=== PATIENT | male | born 1975 | race Caucasian/White ===

== ENCOUNTER 2017-03-30 08:39 | Emergency (ER) | payer OTHER ==
[~2017-03-30] VITALS: Ht 185.4 cm; Wt 191.4 kg
[~2017-03-30 08:39] MED LIST: ABILIFY10 MG PO; ADDERALL 30 MG30 MG PO; ADVIL200 M1 PO; CIPRO HC OTIC S10 ML AD; DEXTROAMP-AMPHE20 MG PO; DEXTROAMP-AMPHE30 MG PO; DILAUDID4 MG PO; HYDROCHLOROTHIA25 MG PO; LATUDA60 MG PO; LISINOPRIL10 MG PO; LOMOTIL TABLET1 EACH PO; MULTI VITAMIN1 EACH PO; ONDANSETRON ODT8 MG PO; OXYCONTIN20 MG PO; SEROQUEL100 MG PO; SEROQUEL200 MG PO; TENEX1 MG PO; TENEX2 MG PO; TRAZODONE HCL100 MG PO; VICODIN 5-3001 EACH PO; XARELTO10 MG PO
[2017-03-30] MEDS ORDERED: PROZAC20 MG PO (08:59)
[2017-03-30] MEDS ORDERED: NORVASC5 MG PO (09:00)
--- NOTE | 2017-03-30 12:07 | EKG ---
[facility] [address] [place], [place] [address] Signed Normal sinus rhythm Normal ECG When compared with ECG of 24-APR-2016 13:24, No significant change was found Confirmed by KRAIG GRACE MD ([id number]) on 03/30/2017 12:07:14 PM Electronically Signed By: KRAIG GRACE MD 03/30/17 1207 PATIENT NAME: HANY DARINEL GARCIA Electrocardiogram DATE OF : 79 PHYSICIAN: KRAIG GRACE MD REPORT #: [id number] REPORT IS CONFIDENTIAL AND NOT TO BE RELEASED WITHOUT AUTHORIZATION
== END 2017-03-30 09:38 | disposition home or self-care (01) ==
LOC: ED 08:39
DX: M25.512 Pain in left shoulder (principal); I10 Essential (primary) hypertension; F32.9 Major depressive disorder, single episode, unspecified; Z87.891 Personal history of nicotine dependence; Z98.890 Other specified postprocedural states; Z96.652 Presence of left artificial knee joint; Z79.899 Other long term (current) drug therapy
CPT/HCPCS: 71020; 93005; 93010; 99284

== ENCOUNTER 2017-09-09 06:56 | Emergency (ER) | payer OTHER ==
[~2017-09-09] VITALS: Ht 185.4 cm; Wt 191.4 kg
[~2017-09-09 06:56] MED LIST changes: +NORVASC5 MG PO; +PROZAC20 MG PO
[2017-09-09] MEDS ORDERED: LISINOPRIL-HCT1 EACH PO (07:10)
== END 2017-09-09 08:05 | disposition home or self-care (01) ==
LOC: ED 06:56
DX: R21 Rash and other nonspecific skin eruption (principal)

== ENCOUNTER 2019-09-09 10:06 | Emergency (ER) | payer OTHER ==
[~2019-09-09] VITALS: Ht 185.4 cm; Wt 217.7 kg
--- OUTSIDE RECORDS SUMMARY | ~2019-09-09 | XMS | Clinical Summary ---
Demographics + + + | Address | [address] | | | [place] [address] | + + + | Home Phone | | + + + | Preferred Language | Unknown | + + + | Marital Status | Single | + + + | Quaker Affiliation | Unknown | + + + | Race | Unknown | + + + | Ethnic Group | Unknown | + + + Author + + + | Author | [facility] | | | and [place] | + + + | Organization | [facility] | | | and [place] | + + + | Address | Unknown | + + + | Phone | Unavailable | + + + Support + + + + + | Name | Relationship | Address | Phone | + + + + + | Message Detailed | ECON | [address] | | | | | [place] | | | | | [address] | | + + + + + Care Team Providers + +------+ + | Care Purse Seiner Name | Role | Phone | + +------+ + | Kip Damon MD | PCP | | + +------+ + Allergies Not on File Medications Not on file Active Problems Not on file Immunizations + + + + | Name | Administration Dates | Next Due | + + + + | PNEUMOCOCCAL | 01/29/2015 | | | POLYSACCHARIDE | | | | 23-VALENT (PPSV23) | | | + + + + Social History + +-------+ +--------+------+ | Tobacco Use | Types | Packs/Day | Years | Date | | | | | Used | | + +-------+ +--------+------+ | Former Smoker | | | | | + +-------+ +--------+------+ + + + | Sex Assigned at | Date Recorded | | | | + + + | Not on file | | + + + + + + + | Job Start Date | Occupation | Industry | + + + + | Not on file | Not on file | Not on file | + + + + + + + + | Travel History | Travel Start | Travel End | + + + + + + | No recent travel history available. | + + Last Filed Vital Signs + + + + + | Vital Sign | Reading | Time Taken | Comments | + + + + + | Blood Pressure | 123/76 | 05/24/2015 10:42 AM | | | | | PST | | + + + + + | Pulse | 86 | 05/24/2015 10:42 AM | | | | | PST | | + + + + + | Temperature | 36.9 C (98.5 F) | 05/24/2015 10:42 AM | | | | | PST | | + + + + + | Respiratory Rate | - | - | | + + + + + | Oxygen Saturation | - | - | | + + + + + | Inhaled Oxygen | - | - | | | Concentration | | | | + + + + + | Weight | 177.4 kg (391 lb) | 05/24/2015 10:42 AM | | | | | PST | | + + + + + | Height | - | - | | + + + + + | Body Mass Index | - | - | | + + + + + Plan of Treatment + + + + + | Health Maintenance | Due Date | Last Done | Comments | + + + + + | Vaccine: | | | | | Dtap/Tdap/Td (1 - | 9 | | | | Tdap) | | | | + + + + + | Vaccine: Influenza | | 01/29/2015 | | | (Season Ended) | 0 | | | + + + + + Results Not on filefrom Last 3 Months"
--- OUTSIDE RECORDS SUMMARY | ~2019-09-09 | XMS | Encounter Summary ---
Demographics + + + | Address | [address] | | | [place] [address] | + + + | Home Phone | | + + + | Preferred Language | Unknown | + + + | Marital Status | Single | + + + | Caodaism Affiliation | Unknown | + + + | Race | Unknown | + + + | Ethnic Group | Unknown | + + + Author + + + | Author | [facility] | | | and [place] | + + + | Organization | [facility] | | | and [place] [...] [place] | | | | | [address] | | + + + + + Care Team Providers + +------+ + | Care Director Of Corporate Communications Name | Role | Phone | + +------+ + | Kip Damon MD | PCP | | + +------+ + Encounter Details +--------+ + + + + | Date | Type | Department | Care Team | Description | +--------+ + + + + | 02/19/ | Orders Only | [facility] | Conversion | | | 2014 | | NEPHROLOGY [place] | Transaction, | | | | | [address] | Provider Unknown | | | | | [address] [place] | | | | | | [phone] | (Fax) | | | | | [phone] | | | +--------+ + + + + Social History + +-------+ +--------+------+ | Tobacco Use | Types | Packs/Day | Years | Date | | | | | Used | | + +-------+ +--------+------+ | Never Assessed | | | | | + +-------+ [...] recent travel history available. | + + documented as of this encounter Plan of Treatment Not on filedocumented as of this encounter Procedures + +--------+ + + + | Procedure Name | Priori | Date/Time | Associated Diagnosis | Comments | | | ty | | | | + +--------+ + + + | COMPREHENSIVE | Routin | 02/19/2015 | | Results for this | | METABOLIC PANEL | e | 12:00 AM | | procedure are in the | | | | PDT | | results section. | + +--------+ + + + documented in this encounter Results Comprehensive Metabolic Panel (02/19/2015 12:00 AM PDT) + +---------+ + + + | Component | Value | Ref Range | Performed | Pathologist | | | | | At | Signature | + +---------+ + + + | Glucose, | 109 (A) | 70 - 100 mg/dL | EXTERNAL | | | Fasting | | | LAB | | + +---------+ + + + | BUN | 11 | 6 - 23 mg/dL | EXTERNAL | | | | | | LAB | | + +---------+ + + + | Creatinine | 0.97 | 0.50 - 1.35 | EXTERNAL | | | | | mg/dL | LAB | | + +---------+ + + + | BUN/Creatin | 11.3 | 6.0 - 28.6 | EXTERNAL | | | ine Ratio | | | LAB | | + +---------+ + + + | Calcium | 9.7 | 8.4 - 10.2 | EXTERNAL | | | | | mg/dL | LAB | | + +---------+ + + + | Protein, | 6.8 | 6.0 - 8.0 g/dL | EXTERNAL | | | Total | | | LAB | | + +---------+ + + + | Albumin | 4.2 | 3.5 - 5.0 | EXTERNAL | | | | | | LAB | | + +---------+ + + + | Globulin | 2.6 | 1.8 - 3.5 | EXTERNAL | | | | | | LAB | | + +---------+ + + + | A/G Ratio | 1.6 | 1.1 - 2.4 | EXTERNAL | | | | | | LAB | | + +---------+ + + + | Bilirubin | 0.7 | 0.0 - 1.2 mg/dL | EXTERNAL | | | Total | | | LAB | | + +---------+ + + + | ALP, | 57 | 30 - 128 | EXTERNAL | | | External | | | LAB | | + +---------+ + + + | ALT | 43 | 7 - 52 U/L | EXTERNAL | | | | | | LAB | | + +---------+ + + + | AST | 24 | 13 - 39 U/L | EXTERNAL | | | | | | LAB | | + +---------+ + + + | Na | 137 | 132 - 143 | EXTERNAL | | | | | mmol/L | LAB | | + +---------+ + + + | K | 4.5 | 3.6 - 5.1 | EXTERNAL | | | | | mmol/L | LAB | | + +---------+ + + + | Cl | 104 | 95 - 112 mmol/L | EXTERNAL | | | | | | LAB | | + +---------+ + + + | CO2 | 22 | 19 - 31 mmol/L | EXTERNAL | | | | | | LAB | | + +---------+ + + + | Anion Gap | 15.5 | 7 - 21 mmol/L | EXTERNAL | | | | | | LAB | | + +---------+ + + + | Estimated | 87 | 60 - 100 mg/dL | EXTERNAL | | | GFR | | | LAB | | + +---------+ + + + + + | Specimen | + + | Blood specimen | | (specimen) | + + + +---------+ + + | Performing | Address | City/State/Zipcode | Phone Number | | Organization | | | | + +---------+ + + | EXTERNAL LAB | | | | + +---------+ + + documented in this encounter Visit Diagnoses Not on filedocumented in this encounter"
--- OUTSIDE RECORDS SUMMARY | ~2019-09-09 | XMS | Clinical Summary ---
Demographics + + + | Address | [address] | | | [place] [address] | + + + | Home Phone | | + + + | Preferred Language | Unknown | + + + | Marital Status | Single | + + + | Episcopal Affiliation | Unknown | + + + | Race | Unknown | + + + | Ethnic Group | Unknown | + + + Author + + + | Author | [facility] (Historical as of | | | 12-10-18) | + + + | Organization | [facility] [facility] (Historical as of | | | 12-10-18) | + + + | Address | Unknown | + + + | Phone | Unavailable | + + + Support + + + + + | Name | Relationship | Address | Phone | + + + + + | Detailed,Message | ECON | [address] | | | | | [place] | | | | | [address] | | + + + + + Care Team Providers + +------+ + | Care Polisher Apprentice Name | Role | Phone | + +------+ + | Kip Damon MD | PP | | + +------+ + Allergies No Known Allergies Current Medications + + +---------+---------+------+------+-------+ | Prescription | Sig. | Disp. | Refills | Star | End | Statu | | | | | | t | Date | s | | | | | | Date | | | + + +---------+---------+------+------+-------+ | lisinopril | Take 10 mg by mouth | | | | | Activ | | (ZESTRIL) 10 MG | daily. | | | | | e | | tablet | | | | | | | + + +---------+---------+------+------+-------+ | guanfacine (TENEX) | Take 2 mg by mouth | | | | | Activ | | 2 MG tablet | daily. | | | | | e | + + +---------+---------+------+------+-------+ | quetiapine | Take 1 tablet by | 30 | 0 | 10/0 | | Activ | | (SEROQUEL) 200 MG | mouth 2 (two) times | tablet | | 7/20 | | e | | tablet | daily. | | | 15 | | | + + +---------+---------+------+------+-------+ | | Take 1 capsule by | 30 | 0 | 10/0 | | Activ | | amphetamine-dextroam | mouth every morning. | capsule | | 7/20 | | e | | phetamine (ADDERALL | | | | 15 | | | | XR) 30 MG 24 hr | | | | | | | | capsule | | | | | | | + + +---------+---------+------+------+-------+ | lurasidone | Take 1 tablet by | 30 | 0 | 10/0 | | Activ | | (LATUDA) 60 MG | mouth nightly. T | tablet | | 7/20 | | e | | tablet | | | | 15 | | | + + +---------+---------+------+------+-------+ | Cholecalciferol | Take 1 tablet by | | | | | Activ | | (VITAMIN D3) 5000 | mouth daily. | | | | | e | | UNITS CAPS | | | | | | | + + +---------+---------+------+------+-------+ | Multiple | Take 1 tablet by | | | | | Activ | | Vitamins-Minerals | mouth daily. | | | | | e | | (MULTIVITAMIN WITH | | | | | | | | MINERALS) tablet | | | | | | | + + +---------+---------+------+------+-------+ | ibuprofen (ADVIL) | Take 800 mg by mouth | | | | | Activ | | 200 MG tablet | daily. | | | | | e | + + +---------+---------+------+------+-------+ Active Problems + + + | Problem | Noted Date | + + + | AVANI (acute kidney injury) | 05/24/2015 | + + + | Essential hypertension | 04/22/2015 | + + + | Mood disorder | 01/31/2015 | + + + | Morbid obesity due to excess calories (HCC) | 01/28/2015 | + + + Resolved Problems + + + + | Problem | Noted | Resolved | | | Date | Date | + + + + | Renal insufficiency | 01/29/20 | | | | 15 | 6 | + + + + Immunizations + + + + | Name | Dates Previously Given | Next Due | + + + + | INFLUENZA | 01/29/2015 | | | QUADRIVALENT 36+ MO | | | | PRESERV FREE | | | + + + + | Pneumococcal | 01/29/2015 | | | Polysaccharide | | | | 23-valent | | | + + + + Social History + +-------+ +--------+------+ | Tobacco Use | Types | Packs/Day | Years | Date | | | | | Used | | + +-------+ +--------+------+ | Former Smoker | | | | | + +-------+ +--------+------+ + + +---------+ + | Alcohol Use | Drinks/We | oz/Week | Comments | | | ek | | | + + +---------+ + | No | | | | + + +---------+ + + + + | Sex Assigned at | Date Recorded | | | | + + + | Not on file | | + + + Last Filed Vital Signs + + + + | Vital Sign | Reading | Time Taken | + + + + | Blood Pressure | 123/76 | 05/24/2015 10:41 AM PST | + + + + | Pulse | 86 | 05/24/2015 10:41 AM PST | + + + + | Temperature | 36.9 C (98.5 F) | 05/24/2015 10:41 AM PST | + + + + | Respiratory Rate | 18 | 01/31/2015 11:22 AM PDT | + + + + | Oxygen Saturation | 97% | 05/24/2015 10:41 AM PST | + + + + | Inhaled Oxygen | - | - | | Concentration | | | + + + + | Weight | 177.4 kg (391 lb) | 05/24/2015 10:41 AM PST | + + + + | Height | 188 cm (6' 2") | 01/30/2015 12:49 PM PDT | + + + + | Body Mass Index | 50.2 | 05/24/2015 10:41 AM PST | + + + + Plan of Treatment + + + + + | Health Maintenance | Due Date | Last Done | Comments | + + + + + | Vaccine: Influenza | | 01/11/2018, 01/12/2017, | | | (Season Ended) | 0 | 01/29/2015 | | + + + + + | Vaccine: | | 01/11/2018, 12/01/2016 | | | Dtap/Tdap/Td (3 - | 8 | | | | Td) | | | | + + + + + Results Not on filefrom Last 3 Months Insurance + +--------+ +------+-------+ + | Payer | Benefi | Subscriber | Type | Phone | Address | | | t Plan | ID | | | | | | / | | | | | | | Group | | | | | + +--------+ +------+-------+ + | MEDICAID | [place] | [id number] | | | [address] | | | [place] | | | | [place] | | | [place] | | | | [phone] | | | [employer] | | | | | + +--------+ +------+-------+ + + +--------+ +--------+ + + | Guarantor Name | Accoun | Relation to | Date | Phone | Billing Address | | | t Type | Patient | of | | | | | | | | | | + +--------+ +--------+ + + | ENDY FROST | Person | Self [birth year] Home: | [address] | | | [place] | | [phone] | [phone] [place] | | | [place] | | [phone] | + +--------+ +--------+ + +
--- OUTSIDE RECORDS SUMMARY | ~2019-09-09 | XMS | Encounter Summary ---
Demographics + + + | Address | [address] | | | [place] [address] | + + + | Home Phone | | + + + | Preferred Language | Unknown | + + + | Marital Status | Single | + + + | Rastafari Affiliation | Unknown | + + + | Race | Unknown | + + + | Ethnic Group | Unknown | + + + Author + + + | Author | [facility] | | | and [place] | + + + | Organization | [facility] | | | and [place] | + + + | Address | Unknown | + + + | Phone | Unavailable | + + + Support + + + + + | Name | Relationship | Address | Phone | + + + + + | Message Detailed | ECON | [address] | | | | | [place] | | | | | [address] | | + + + + + Care Team Providers + +------+ + | Care Applications Administrator Name | Role | Phone | + +------+ + | Kip Damon MD | PCP | | + +------+ + Encounter Details +--------+ + + + + | Date | Type | Department | Care Team | Description | +--------+ + + + + | 05/21/ | Orders Only | [facility] | Compa Sifuentes MD | | | 2015 | | NEPHROLOGY [place] | [address] [place] | | | | | [address] [place] | [address] [place], [place] | | | | | [address] [place], [place] | [address] | | | | | [phone] | | | | | | [phone] | | | +--------+ + + + [...] | + +--------+ + + + | EXTERNAL LAB: CBC | Routin | 05/21/2015 | | Results for this | | | e | 12:00 AM | | procedure are in the | | | | PST | | results section. | + +--------+ + + + | URINALYSIS WITH | Routin | 05/21/2015 | | Results for this | | MICROSCOPIC WITH | e | 12:00 AM | | procedure are in the | | CULTURE IF INDICATED | | PST | | results section. | + +--------+ + + + | PROTEIN/CREATININE | Routin | 05/21/2015 | | Results for this | | RATIO, URINE | e | 12:00 AM | | procedure are in the | | | | PST | | results section. | + +--------+ + + + | URIC ACID | Routin | 05/21/2015 | | Results for this | | | e | 12:00 AM | | procedure are in the | | | | PST | | results section. | + +--------+ + + + | MAGNESIUM | Routin | 05/21/2015 | | Results for this | | | e | 12:00 AM | | procedure are in the | | | | PST | | results section. | + +--------+ + + + | BASIC METABOLIC | Routin | 05/21/2015 | | Results for this | | PANEL | e | 12:00 AM | | procedure are in the | | | | PST | | results section. | + +--------+ + + + documented in this encounter Results Urinalysis with Microscopic with Culture if Indicated (05/21/2015 12:00 AM PST) + + + + + + | Component | Value | Ref Range | Performed | Pathologist | | | | | At | Signature | + + + + + + | Color | Yellow | | EXTERNAL | | | | | | LAB | | + + + + + + | Clarity | Clear | | EXTERNAL | | | | | | LAB | | + + + + + + | Spec Grav, | 1.021 | 1.005 - 1.030 | EXTERNAL | | | Fluid | | | LAB | | + + + + + + | Leukocyte | Negative | | EXTERNAL | | | Esterase, | | | LAB | | | Urine | | | | | + + + + + + | Nitrite, | Negative | | EXTERNAL | | | Urine | | | LAB | | + + + + + + | Urobilinoge | Normal | | EXTERNAL | | | n, Urine | | | LAB | | + + + + + + | Total | Negative | | EXTERNAL | | | Protein | | | LAB | | + + + + + + | pH, Urine | 7 | 5 - 9 | EXTERNAL | | | | | | LAB | | + + + + + + | Blood, | Negative | | EXTERNAL | | | Urine | | | LAB | | + + + + + + | Ketones | Negative | | EXTERNAL | | | | | | LAB | | + + + + + + | Bilirubin, | Negative | | EXTERNAL | | | Urine | | | LAB | | + + + + + + | Glucose, | Negative | | EXTERNAL | | | Urine | | | LAB | | + + + + + + | WBC, UA | | | EXTERNAL | | | | | | LAB | | + + + + + + | RBC, UA | | | EXTERNAL | | | | | | LAB | | + + + + + + | Epithelial | | | EXTERNAL | | | Cells | | | LAB | | + + + + + + | Bacteria, | | | EXTERNAL | | | UA | | | LAB | | + + + + + + | HYALINE | | | EXTERNAL | | | CASTS UA | | | LAB | | + + + + + + + + | Specimen | + + | | + + + +---------+ + + | Performing | Address | City/State/Zipcode | Phone Number | | Organization | | | | + +---------+ + + | EXTERNAL LAB | | | | + +---------+ + + Protein/Creatinine Ratio, Urine (05/21/2015 12:00 AM PST) + +-------+ + + + | Component | Value | Ref Range | Performed | Pathologist | | | | | At | Signature | + +-------+ + + + | Protein/Cre | 52.1 | 0 - 150 | EXTERNAL | | | at Ratio | | | LAB | | + +-------+ + + + + + | Specimen | + + | Urine specimen | | (specimen) | + + + +---------+ + + | Performing | Address | City/State/Zipcode | Phone Number | | Organization | | | | + +---------+ + + | EXTERNAL LAB | | | | + +---------+ + + External Lab: CBC (05/21/2015 12:00 AM PST) + + + + + + | Component | Value | Ref Range | Performed | Pathologist | | | | | At | Signature | + + + + + + | WBC | 6.7 | 4.5 - 11.0 10 | EXTERNAL | | | | | | LAB | | + + + + + + | Red Blood | 4.98 | 4.3 - 5.7 10 | EXTERNAL | | | Cells | | | LAB | | | Counted | | | | | + + + + + + | Hemoglobin | 14.5 | 13.5 - 18.0 | EXTERNAL | | | | | g/dL | LAB | | + + + + + + | Hematocrit, | 43.3 | 41 - 50 % | EXTERNAL | | | POC | | | LAB | | + + + + + + | MCV | 86.9 | 81 - 99 fL | EXTERNAL | | | | | | LAB | | + + + + + + | MCH | 29 | 27 - 33 pg | EXTERNAL | | | | | | LAB | | + + + + + + | MCHC | 33 | 30 - 36 g/dL | EXTERNAL | | | | | | LAB | | + + + + + + | Platelet | 195 | 140 - 440 K/ L | EXTERNAL | | | Count | | | LAB | | | Plasma | | | | | + + + + + + | RDW-CV | 13.5 | 10.5 - 15.0 % | EXTERNAL | | | | | | LAB | | + + + + + + | MPV | | fL | EXTERNAL | | | | | | LAB | | + + + + + + | Differentia | Auto | | EXTERNAL | | | l Type | | | LAB | | + + + + + + | % Segmented | 69.7 | 39 - 80 % | EXTERNAL | | | | | | LAB | | | Neutrophils | | | | | + + + + + + | % | 20.8 (A) | 24 - 44 % | EXTERNAL | | | Lymphocytes | | | LAB | | + + + + + + | % Monocytes | 7.2 | 0 - 12 % | EXTERNAL | | | | | | LAB | | + + + + + + | % | 1.8 | 0 - 6 % | EXTERNAL | | | Eosinophils | | | LAB | | + + + + + + | % Basophils | 1.5 | 0 - 2 % | EXTERNAL | | | | | | LAB | | + + + + + + | Absolute | | / L | EXTERNAL | | | Segmented | | | LAB | | | Neutrophils | | | | | + + + + + + | Absolute | | / L | EXTERNAL | | | Lymphocytes | | | LAB | | + + + + + + | Absolute | | / L | EXTERNAL | | | Monocytes | | | LAB | | + + + + + + | Absolute | | / L | EXTERNAL | | | Eosinophils | | | LAB | | + + + + + + | Absolute | | / L | EXTERNAL | | | Basophils | | | LAB | | + + + + + + + + | Specimen | + + | Blood specimen | | (specimen) | + + + +---------+ + + | Performing | Address | City/State/Zipcode | Phone Number | | Organization | | | | + +---------+ + + | EXTERNAL LAB | | | | + +---------+ + + Uric Acid (05/21/2015 12:00 AM PST) + +-------+ + + + | Component | Value | Ref Range | Performed | Pathologist | | | | | At | Signature | + +-------+ + + + | Uric Acid | 7.4 | 4.4 - 7.6 | EXTERNAL | | | | | | LAB | | + +-------+ + + + + + | Specimen | + + | Blood specimen | | (specimen) | + + + +---------+ + + | Performing | Address | City/State/Zipcode | Phone Number | | Organization | | | | + +---------+ + + | EXTERNAL LAB | | | | + +---------+ + + Magnesium (05/21/2015 12:00 AM PST) + +-------+ + + + | Component | Value | Ref Range | Performed | Pathologist | | | | | At | Signature | + +-------+ + + + | Magnesium | 1.7 | 1.7 - 2.5 mg/dL | EXTERNAL | | | | | | LAB | | + +-------+ + + + + + | Specimen | + + | Blood specimen | | (specimen) | + + + +---------+ + + | Performing | Address | City/State/Zipcode | Phone Number | | Organization | | | | + +---------+ + + | EXTERNAL LAB | | | | + +---------+ + + Basic Metabolic Panel (05/21/2015 12:00 AM PST) + +-------+ + + + | Component | Value | Ref Range | Performed | Pathologist | | | | | At | Signature | + +-------+ + + + | Glucose, | 90 | 70 - 100 mg/dL | EXTERNAL | | | Fasting | | | LAB | | + +-------+ + + + | BUN | 14 | 6 - 23 mg/dL | EXTERNAL | | | | | | LAB | | + +-------+ + + + | Creatinine | 0.91 | 0.60 - 1.35 | EXTERNAL | | | | | mg/dL | LAB | | + +-------+ + + + | BUN/Creatin | 15.4 | 6.0 - 28.6 | EXTERNAL | | | ine Ratio | | | LAB | | + +-------+ + + + | Calcium | 10.0 | 8.4 - 10.2 | EXTERNAL | | | | | mg/dL | LAB | | + +-------+ + + + | Na | 137 | 132 - 143 | EXTERNAL | | | | | mmol/L | LAB | | + +-------+ + + + | K | 4.4 | 3.6 - 5.1 | EXTERNAL | | | | | mmol/L | LAB | | + +-------+ + + + | Cl | 101 | 95 - 112 mmol/L | EXTERNAL | | | | | | LAB | | + +-------+ + + + | CO2 | 25 | 19 - 31 mmol/L | EXTERNAL | | | | | | LAB | | + +-------+ + + + | Anion Gap | 15.4 | 7 - 21 mmol/L | EXTERNAL | | | | | | LAB | | + +-------+ + + + | Estimated | 94 | 60 - 140 mg/dL | EXTERNAL | | | GFR | | | LAB | | + +-------+ + + + + + | Specimen [...]
--- OUTSIDE RECORDS SUMMARY | ~2019-09-09 | XMS | Encounter Summary ---
Demographics + + + | Address | [address] | | | [place] [address] | + + + | Home Phone | | + + + | Preferred Language | Unknown | + + + | Marital Status | Single | + + + | Jainism Affiliation | Unknown | + + + | Race | Unknown | + + + | Ethnic Group | Unknown | + + + Author + + + | Author | [facility] | | | and [place] | + + + | Organization | [facility] | | | and [place] | + + + | Address | Unknown | + + + | Phone | Unavailable | + + + Support + + + + + | Name | Relationship | Address | Phone | + + + + + | Message Detailed | ECON | [address] | | | | | [place], [place] | | | | | [address] | | + + + + + Care Team Providers + +------+ + | Care Clinical Specialist Name | Role | Phone | + +------+ + PCP | Unavailable | + +------+ + Encounter Details +--------+ + + + + | Date | Type | Department | Care Team | Description | +--------+ + + + + | 01/28/ | Hospital | [facility] | Catracho Zavala | Acute renal failure, | | 2014 - | Encounter | [facility]ENTER | MD [address] | unspecified acute | | | | CLINICAL DECISION | Ernie Baltazar | renal failure type | | 01/31/ | | [address] | [place] [address] | ([facility]); | | 2015 | | [place], [place] | [phone] | Non-intractable | | | | [phone] | | vomiting with | | | | [phone] | | nausea, vomiting of | | | | | | unspecified type | +--------+ + + + + Social [...] + + documented as of this encounter Discharge Summaries Luis Miguel Reyes MD - 01/31/2015 11:50 AM PDTFormatting of this note might be differ ent from the original. Discharge Summaries by Luis Miguel Reyes MD at 01/31/15 8835 Author: Luis Miguel Reyes MD Service: Hospitalist Author Type: Physician Filed: 02/17/15 8354 Date of Service: 01/31/151149 Status: Addendum Juvenile Justice Officer: Luis Miguel Reyes MD (Physician) Related Notes: Original Note by Luis Miguel Reyes MD (Physician) filed at 02/01/15 8639 [facility] Service: Hospitalist Discharge Summary Date of Admission: 01/28/2015 Date of Discharge: Discharge Provider: Luis Miguel Reyes MD Treatment Team: Admitting Provider: Catracho Zavala MD Discharge Diagnoses: Active Problems: Renal insufficiency Morbid obesity due to excess calories (HCC) Resolved Problems: * No resolved hospital problems. * BRIEF HISTORY OF PRESENTATION: Endy Frost is a 39 y.o. male who Was admitted to the hospital for acute kidney inj ury. Patient recently underwent a left knee total arthroplasty and was subsequently discharg ed home. Unfortunately, patient could not get around the house much. He was not drinking estrella ugh water but continued taking diuretics. Progressively got dehydrated, went into renal fail ure. He was brought to our facility with creatinine of 2.5. He was admitted, started on IV fluid s. Within 48 hours his creatinine was improved. Patient is quite deconditioned. [facility] to take [facility] him at home. With his morbid obesity and recent surgery, he is unable to get around effectively, so patient is being transferred to a SNF. I have stopped h is hydrochlorothiazide. We will continue lisinopril for blood pressure management. For the DVT prophylaxis he is going to be on Xarelto. He is going to follow up with the orthopedic surgeon as an outpatient. Patient discharged on 01/31 Prescriptions prior to admission Medication Sig Dispense Refill Last Dose amphetamine-dextroamphetamine (ADDERALL XR) 30 MG 24 hr capsule Take 30 mg by mouth jose ry morning. 01/28/2015 at Unknown time guanfacine (TENEX) 2 MG tablet Take 2 mg by mouth daily. 01/28/2015 at Unknown time hydrochlorothiazide (HYDRODIURIL) 25 MG tablet Take 25 mg by mouth daily. 01/28/2015 a t Unknown time HYDROmorphone (DILAUDID) 4 MG tablet Take 4 mg by mouth every 4 (four) hours as needed for Pain. 01/28/2015 at Unknown time lisinopril (ZESTRIL) 10 MG tablet Take 10 mg by mouth daily. 01/28/2015 at Unknown elisa e lurasidone (LATUDA) 60 MG tablet Take 60 mg by mouth nightly. T 01/27/2015 at Unknown time OxyCODONE (OXYCONTIN) 20 MG 12 hr tablet Take 20 mg by mouth every 4 (four) hours as ne eded for Pain. 01/28/2015 at Unknown time quetiapine (SEROQUEL) 200 MG tablet Take 200 mg by mouth 2 (two) times daily. 01/28/20 at Unknown time rivaroxaban (XARELTO) 10 MG tablet Take 10 mg by mouth daily. DISCHARGE EXAM Vital Signs: BP 120/56 mmHg | Pulse 83 | Temp(Src) 98.3 F (36.8 C) (Oral) | Resp 16 | Ht 1.88 m (6' 2") | Wt 169.328 kg (373 lb 4.8 oz) | BMI 47.91 kg/m2 | SpO2 95% Physical Exam General Appearance: awake, alert, oriented, in no acute distress Morbidly obese Eyes: No gross abnormalities. Neck: neck- supple, no mass, non-tender Abdomen: Soft, non-tender, normal bowel sounds. No bruits, organomegaly or masses. Extremities: Surgical scar looks ok no evidence of bleeding or infection DATA Recent Labs Lab 01/30/1551101/29/1534301/28/151914 WBC 6.19 7.58 7.83 HGB 11.5* 10.9* 11.7* HCT 34.1* 32.7* 34.4* PLT 194 226 266 NEUTOPHILPCT 71.78 66.66 75.90 MONOPCT 6.25 8.58 6.38 Recent Labs Lab 01/30/1551101/29/1534301/28/151914 NA 133* 133* 138 K 4.1 4.0 3.7 CL 104 104 106 CO2 23 23 21* BUN 37* 65* 72* CREATININE 1.37* 2.76* 3.4* PROT 6.4 -- 6.5 BILITOT 0.7 -- 0.7 ALT 51 -- 71* AST 28 -- 30 Phosphorus: Lab Results Component Value Date PHOS 4.6 01/28/2015 Invalid input(s): LABALBU Recent Labs Lab 01/30/1551101/28/151914 MG 1.8 2.2 No results for input(s): AMYLASE in the last 168 hours. No results for input(s): PHART, PO2ART, DUT4IND, K3RZRBVC, BEART in the last 168 hours. No results for input(s): APTT, INR, PTT in the last 168 hours. Recent Labs Lab 01/28/151914 TSH 0.54 Recent Labs Lab 01/28/151914 CKTOTAL 85 Radiology No results found. Disposition: senior care Condition: Good Code Status: Full Code No discharge procedures on file. Follow up: Kip Dotson MD [address] [facility] [address] Medication List CONTINUE taking these medications amphetamine-dextroamphetamine 30 MG 24 hr capsule Refills: 0 Commonly known as: ADDERALL XR guanfacine 2 MG tablet Refills: 0 Commonly known as: TENEX hydrochlorothiazide 25 MG tablet Refills: 0 Commonly known as: HYDRODIURIL HYDROmorphone 4 MG tablet Refills: 0 Commonly known as: DILAUDID LATUDA 60 MG tablet Refills: 0 Generic drug: lurasidone lisinopril 10 MG tablet Refills: 0 Commonly known as: ZESTRIL OxyCODONE 20 MG 12 hr tablet Refills: 0 Commonly known as: oxyCONTIN quetiapine 200 MG tablet Refills: 0 Commonly known as: SEROquel XARELTO 10 MG tablet Refills: 0 Generic drug: rivaroxaban Discharge took 35 minutes, to include final examination, discussion of admission, and prepa ration of prescriptions, instructions for on-going care, follow-up and documentation of disc harge summary. Luis Miguel Reyes MD 01/30/2015 11:50 AM documented in this encounter Progress Notes Conversion Transaction, Provider Unknown - 01/31/2015 3:13 PM PDTFormatting of this note m ight be different from the original. Nurse Progress Note by Wm Sánchez RN at 01/31/151512 Author: Wm Sánchez RN Service: (none) Author Type: Registered Nurse Filed: 01/31/151516 Date of Service: 01/31/151512 Status: Signed Juvenile Justice Officer: Wm Sánchez RN (Registered Nurse) Pt discharged to [facility] in [place], [place]. Discharge paperwork previously faxed. Pt denied pain. Belongings with pt. No concerns. Pt wheeled out by escort. CLEM Sánchez RN onver elsy Transaction, Provider Unknown - 01/31/2015 2:53 PM PDT Nurse Progress Note by Wm Sánchez RN at 01/31/15 619 Author: Wm Sánchez RN Service: (none) Author Type: Registered Nurse Filed: 01/31/15 1458 Date of Service: 01/31/151452 Status: Signed Juvenile Justice Officer: Wm Sánchez RN (Registered Nurse) Report called to SRUTHI Vanessa at [facility]. WM Sánchez RN onver elsy Transaction, Provider Unknown - 01/31/2015 2:10 PM PDT Therapy Progress Note by Tona Alston PTA at 01/31/15 1410 Author: Tona Alston PTA Service: (none) Author Type: Home Care Music Therapist Filed: 01/31/15 1429 Date of Service: 01/31/151409 Status: Signed Juvenile Justice Officer: Tona Alston PTA (Home Care Music Therapist) 01/31/15 1410 PT Last Visit PT Received On 01/31/15 Reason for Treatment Other (comment) (ARF, s/p recent L TKA (01/15/15)) Requires PT Follow Up Yes Follow up PT Only? No Assistance Required 1 person Director Of Partner Marketing Needed No Other Comments Comments Pt supine in bed upon arrival, agreeable to PT. Pt reports that he will be transfe ring from here within a couple of hours. Pt ambulates in frausto and performed stair training. Pt returned to supine in bed at end of session. Cognition Overall Cognitive Status WFL Bed Mobility Supine to Sit Independent Sit to Supine Independent Scooting Independent Transfers Sit to/from Stand Modified independent Mobility Ambulation Assistance Standby assist;Supervision Maximal Ambulation Distance (feet) 150 Total Ambulation Distance (feet) 150 Distance limited by? Patient's ability Pattern Decreased elan;Right swing foot doesn't pass stance foot;Wide base Assistive Device Walker front wheeled Stairs Assistance Standby assist;Verbal instruction Number of Stairs 12 Number of stairs limited by? Patient's ability Stair Management Technique Step-to;Rails bilateral Activity Tolerance Activity Tolerance Patient limited by fatigue Nurse Made Aware yes Plan Treatment/Interventions Continue per Primary PT POC Progress Progressing toward goals Recommendation Recommendations SNF PT Ready for Discharge Yes onver elsy Transaction, Provider Unknown - 01/31/2015 1:01 PM PDT Case Management by RICKEY Salazar at 01/31/15 1301 Author: RICKEY Salazar Service: (none) Author Type: Projector Operator Filed: 01/31/15 8978 Date of Service: 01/31/15 1301 Status: Signed Juvenile Justice Officer: RICKEY Salazar (Projector Operator) Pt being dc 'd today 01/31/2015 to [facility] in [place] for PT/OT/SN Evaluatio n Treatment. Will be transported by [employer] Transportation in [place] [phone]. onver elsy Transaction, Provider Unknown - 01/30/2015 1:50 PM PDT Therapy Progress Note by Enedelia Jamison PT at 01/30/15 1350 Author: Enedelia Jamison PT Service: (none) Author Type: Physical Therapist Filed: 01/30/15 7050 Date of Service: 01/30/15 1350 Status: Addendum Juvenile Justice Officer: Enedelia Jamison PT (Physical Therapist) Related Notes: Original Note by Enedelia Jamison PT (Physical Therapist) filed at 01/30/15 5567 01/30/15 1350 PT Last Visit PT Received On 01/30/15 Reason for Treatment Other (comment) (ARF, s/p recent L TKA (01/15/15)) Requires PT Follow Up Yes Follow up PT Only? No Focus for Next Treatment Stair Training Assistance Required 1 person Director Of Partner Marketing Needed No Other Comments Comments Pt found in bed upon PT arrival, agreeable to participate in therapy this PM. Pt r eported 5/10 pain in L knee at start of session. Pt demonstrating improved tolerance to ambu lation today and was able to ambulate a greater distance, but still relying heavily on UEs d uring stance phase on L. Pt able to perform LAQ without evidence of extension lag, pt report ing that he has been performing his exercises to improve knee extension. Pt able to attain a pprox 80 degrees of knee flexion, which is some progress, but sitll significantly limited to allow for normal completion of functional mobility (STS and stairs). Pt states that he plan s to d/c to a SNF for daily rehab post hospital stay. Cognition Overall Cognitive Status WFL Orientation Level Oriented Bed Mobility Supine to Sit Independent Sit to Supine Independent Transfers Sit to/from Stand Modified independent Mobility Ambulation Assistance Standby assist;Verbal instruction Maximal Ambulation Distance (feet) 200 Total Ambulation Distance (feet) 200 Distance limited by? Patient's ability Pattern Step to;Decreased elan;Right swing foot doesn't pass stance foot (increaesd degree of L toe out) Assistive Device Walker front wheeled Stairs Assistance (Not performed d/t fatigue post gait training) Supine Supine-Exercise Type Quad sets;Short arc quads;SLR;Heel slides Supine-Exercise Comments x 15 of each on L. Pt instructed in heel slide technique for knee flexion to mild stretch with ankle pump at end of tolerable range to achieve slightly more R OM. Seated Seated-Exercise Type Ankle pumps;Long arc quads;ABduction;Ball squeeze Seated-Exercise Comments x 15 of each Standing Standing-Exercise Type Other (comment) (Standing TKE against green theraband) Standing-Exercise Comments x 10 on L LE with cueing to hold TKE for 3 seconds at end ROM. Modalities Other Therapy Reviewed HEP with pt and instructed pt in a couple new exercises. Pt also giv en education on resting position of L knee to prevent knee flexion contracture as pt states that he has been resting with a pillow under his knees. Activity Tolerance Activity Tolerance Patient limited by fatigue Nurse Made Aware Yes Safety Devices Safety Devices in Place (Call light in reach) Restraints Initially in Place No Plan Treatment/Interventions Continue per Primary PT POC Progress Progressing toward goals Recommendation Recommendations SNF (Per pt and chart review, pt to d/c to [facility]) Equipment Recommended Walker front wheeled Barriers to Discharge Physical Deficits Impacting Functional Gordon PT Ready for Discharge Yes onver elsy Transaction, Provider Unknown - 01/30/2015 12:30 PM PDT Progress Notes by Cherie Hirsch RN at 01/30/15 1230 Author: Cherie Hirsch RN Service: (none) Author Type: Registered Nurse Filed: 01/30/15 1241 Date of Service: 01/30/15 1230 Status: Addendum Juvenile Justice Officer: Cherie Hirsch RN (Registered Nurse) Related Notes: Original Note by Cherie Hirsch RN (Registered Nurse) filed at 01/30/15 1240 Pt Wheeled To [address] Wheelchair With Personal Belongings By anthony Casanova. Adriana onver elsy Transaction, Provider Unknown - 01/30/2015 12:04 PM PDT Progress Notes by Cherie Hirsch RN at 01/30/15 1204 Author: Cherie Hirsch RN Service: (none) Author Type: Registered Nurse Filed: 01/30/15 1210 Date of Service: 01/30/15 1204 Status: Addendum Juvenile Justice Officer: Cherie Hirsch RN (Registered Nurse) Related Notes: Original Note by Cherie Hirsch RN (Registered Nurse) filed at 01/30/15 1205 Report Given to Sarah. Pt To go To [address]. Personal Belongings krista pt. Pt Updated on plan. Pt Awaiting Approval For Discharge Facility Adriana onver elsy Transaction, Provider Unknown - 01/30/2015 11:28 AM PDT Progress Notes by Cherie Hirsch RN at 01/30/15 1128 Author: Cherie Hirsch RN Service: (none) Author Type: Registered Nurse Filed: 01/30/15 1128 Date of Service: 01/30/158 Status: Signed Juvenile Justice Officer: Cherie Hirsch RN (Registered Nurse) Am meds reviewd With Pt. Adriana onver elsy Transaction, Provider Unknown - 01/30/2015 10:14 AM PDT Case Management by Jenifer Thompson RN at 01/30/15 1014 Author: Jenifer Thompson RN Service: (none) Author Type: Registered Nurse Filed: 01/30/15 1154 Date of Service: 01/30/15 1014 Status: Addendum Juvenile Justice Officer: Jenifer Thompson RN (Registered Nurse) Related Notes: Original Note by Jenifer Thompson RN (Registered Nurse) filed at 1 1016 [facility] pending insurance authorization. Expect auth not to be available until tomorrow. SNF paperwork signed and on chart. onver elsy Transaction, Provider Unknown - 01/30/2015 7:48 AM PDT Case Management by Jenifer Thompson RN at 01/30/15 0748 Author: Jenifer Thompson RN Service: (none) Author Type: Registered Nurse Filed: 01/30/15 0749 Date of Service: 01/30/15 0748 Status: Signed Juvenile Justice Officer: Jenifer Thompson RN (Registered Nurse) [facility], and [facility] denying due to [place] Medicaid [employer]. onver elsy Transaction, Provider Unknown - 01/29/2015 10:23 PM PDT Nurse Progress Note by Elisa Alonzo RN at 102222 Author: Elisa Alonzo RN Service: (none) Author Type: Registered Nurse Filed: 01/29/152223 Date of Service: 01/29/152222 Status: Signed Juvenile Justice Officer: Elisa Alonzo RN (Registered Nurse) Pt resting quietly in bed eyes closed no sign of distress, will continue to monitor pt. Robert Lama RN Luis Miguel Marte i, MD - 01/29/2015 3:20 PM PDTFormatting of this note might be different fro m the original. Progress Notes by Luis Miguel Reyes MD at 01/29/15 1520 Author: Luis Miguel Reyes MD Service: Hospitalist Author Type: Physician Filed: 01/31/15 1336 Date of Service: 01/29/150 Status: Signed Juvenile Justice Officer: Luis Miguel Reyes MD (Physician) Related Notes: Original Note by Luis Miguel Reyes MD (Physician) filed at 01/29/15 1523 [facility] Service: Hospitalist Progress Note Hospital Day: LOS: 1 day SUBJECTIVE Patient Summary: Events Overnight: Patient is reporting knee pain NO CP or SOA No dizziness No nausea or vomiting. NO other complaints amphetamine-dextroamphetamine 30 mg Oral QAM docusate sodium 100 mg Oral BID famotidine 20 mg Oral BID lidocaine buffered 1% 0.5 mL Intradermal Once polyethylene glycol 17 g Oral BID quetiapine 200 mg Oral BID rivaroxaban 10 mg Oral Daily sodium chloride 10 mL Intravenous Q8H Continuous Infusions famotidine sodium chloride (IV) 150 mL/hr at 01/29/15 0840 PRN Medications acetaminophen OR acetaminophen, aluminum-magnesium hydroxide-simethicone, calcium carbo janey, HYDROmorphone, morphine OR morphine OR morphine, polyethylene glycol, zolpidem OBJECTIVE Vital Signs: BP 105/54 mmHg | Pulse 78 | Temp(Src) 97.8 F (36.6 C) (Oral) | Resp 16 | Ht 1.88 m (6' 2") | Wt 169.328 kg (373 lb 4.8 oz) | BMI 47.91 kg/m2 | SpO2 95% Physical Exam General Appearance: awake, alert, oriented, in no acute distress Eyes: No gross abnormalities. Neck: neck- supple, no mass, non-tender Lungs: Normal expansion. Clear to auscultation. No rales, rhonchi, or wheezing. Abdomen: Soft, non-tender, normal bowel sounds. No bruits, organomegaly or masses. Extremities: LKA nay and incision site look ok No redness or discharge DATA Recent Labs Lab 01/29/1534301/28/151914 WBC 7.58 7.83 HGB 10.9* 11.7* HCT 32.7* 34.4* PLT 226 266 NEUTOPHILPCT 66.66 75.90 MONOPCT 8.58 6.38 Recent Labs Lab 01/29/1534301/28/151914 NA 133* 138 K 4.0 3.7 CL 104 106 CO2 23 21* BUN 65* 72* CREATININE 2.76* 3.4* PROT -- 6.5 BILITOT -- 0.7 ALT -- 71* AST -- 30 Phosphorus: Lab Results Component Value Date PHOS 4.6 01/28/2015 Invalid input(s): LABALBU Recent Labs Lab 01/28/151914 MG 2.2 No results for input(s): AMYLASE in the last 168 hours. No results for input(s): PHART, PO2ART, YZA4NZY, I3TAGSSE, BEART in the last 168 hours. No results for input(s): APTT, INR, PTT in the last 168 hours. Recent Labs Lab 01/28/151914 TSH 0.54 Recent Labs Lab 01/28/151914 CKTOTAL 85 Radiology No results found. PROBLEM LIST Active Problems: Renal insufficiency Morbid obesity due to excess calories (HCC) Resolved Problems: * No resolved hospital problems. * ASSESSMENT & PLAN 1. Acute kidney injury secondary to volume depletion, hold diuretics and KASEY inhibitors. Co ntinue IV hydration. Monitor creatinine closely. 2. Left knee pain, recent left knee arthroplasty. Continue p.r.n. pain medicine. 3. Constipation. Start MiraLax b.i.d. 4. DVT prophylaxis. Rivaroxaban. 5. Morbid obesity. Will benefit from weight loss. Code Status: Full Code Luis Miguel Reyes MD 01/29/2015 3:20 PM onversion Tr ansaction, Provider Unknown - 01/29/2015 2:50 PM PDTFormatting of this note might be differ ent from the original. Case Management by Sophy Wheeler RN at 01/29/15 1450 Author: Sophy Wheeler RN Service: (none) Author Type: Registered Nurse Filed: 01/29/15 1637 Date of Service: 01/29/15 1450 Status: Addendum Juvenile Justice Officer: Sophy Wheeler RN (Registered Nurse) Related Notes: Original Note by Sophy Wheeler RN (Registered Nurse) filed at 01/29/[address] conversation with patient that referrals be sent to all local and out of town S NF's. Patient voiced agreement. 1515 [place] denied since he has [place] [employer] onver elsy Transaction, Provider Unknown - 01/29/2015 1:50 PM PDT Therapy Progress Note by Torie Matthews PT at 01/29/15 1350 Author: Torie Matthews PT Service: (none) Author Type: Physical Therapist Filed: 01/29/15 1506 Date of Service: 01/29/15 1350 Status: Addendum Juvenile Justice Officer: Torie Matthews PT (Physical Therapist) Related Notes: Original Note by Torie Matthews PT (Physical Therapist) filed at 01/29/15 1504 01/29/15 1350 PT Last Visit PT Received On 01/29/15 Reason for Treatment Other (comment) Requires PT Follow Up Awaiting tx order Follow up PT Only? No Focus for Next Treatment Stair Training (ther ex/rom left knee) PT Eval/Reassessment Date 01/29/15 Assistance Required 1 person Director Of Partner Marketing Needed No Home Environment Type of Home Home one story Home Exterior Layout 4-6 steps (loose railing) Home Interior Layout Lives on main level with bedroom/bathroom Bathroom Shower/Tub Tub/shower unit Bathroom Toilet Standard Bathroom Equipment Hand-held shower head;Shower chair (suction bar in tub) Bathroom Accessibility Not accessible Home Equipment Walker front wheeled;Crutches-axillary Prior Function Level of Gordon Modified independent with functional mobility;Assist with ADLs;Assist with IADLs Lives With Other (Comment) (step father,) Comments driving up until TKR on 01/15/15. Step in hospital RUE Assessment RUE Assessment WFL LUE Assessment LUE Assessment WFL RLE Assessment RLE Assessment WFL LLE Assessment LLE Assessment X AROM LLE (degrees) L Knee Flexion 0-140 50 L Knee Extension 0 10 Strength LLE L Knee Extension 3-/5 (20 degree quad lag) Cognition Overall Cognitive Status WFL Orientation Level Oriented Sensation Light Touch No apparent deficits Vision-Basic Assessment Current Vision Wears glasses Assessment of Patient Status Assessment of Patient Status Decreased LE strength;Decreased functional mobility;Decreased endurance Prognosis Should progress with skilled therapy intervention Safety Devices Safety Devices in Place (call hawkins in reach) Activity Tolerance Endurance Good Sitting Balance Moves/returns trunkal midpoint > 2 inches in all planes Plan Treatment/Interventions Gait training;TKR protocol;Therapeutic exercise;Stair training PT Frequency 5-7x/wk;Once per day Care Duration (# of days) 7 # of days Recommendation Recommendations OP PT Recommendation Comments Difficulty performing PT at home. Pt. stating that house is too ful l of "stuff". Recommend outpatient PT. He will need assist getting to appointments. Chris wills ther is in poor health/presently in the hospital. 01/29/15 1350 PT Last Visit PT Received On 01/29/15 Reason for Treatment Other (comment) Requires PT Follow Up Awaiting tx order Follow up PT Only? No Focus for Next Treatment Stair Training (ther ex/rom left knee) PT Eval/Reassessment Date 01/29/15 Assistance Required 1 person Director Of Partner Marketing Needed No Other Comments Comments 39 yr old male admitted with renal insufficiency. Pt. underwent TKR on 01/15/15 and still has nay in situ. Pt. did have home health PT come to see him but he stated that t hey were going to set up inpatient rehab. Spoke with director case management about this. Feel pt. would be able to tolerate going to outpt. PT if he has transportation. Issued HEP for TKR to pt. and reviewed ex's with focus on quad sets/knee flexion/LAQ's. Ambulating with fww and vc's to slow elan as pt. was losing balance forward. Tinetti VISHAL 20. Pt. needs to use wa lker for safe ambulation. Due to pain/decreased strength left le, pt. is unable to ambulate with symmetrical gait pattern. Cognition Overall Cognitive Status WFL Orientation Level Oriented Bed Mobility Supine to Sit Independent Sit to Supine Independent Transfers Sit to/from Stand Modified independent Mobility Weight Bearing Status WBAT RLE;WBAT LLE Ambulation Assistance Verbal instruction;Standby assist Maximal Ambulation Distance (feet) 75 Total Ambulation Distance (feet) 75 Distance limited by? Patient's ability (stating he was fatigued) Pattern Step to;Decreased elan;Right swing foot doesn't pass stance foot (continued heavy weight bearing through bilat ue's) Assistive Device Walker front wheeled Modalities Modalities Other therapy Other Therapy Instructing pt. on proper use of walker, ther ex for HEP. Issued HEP. Activity Tolerance Activity Tolerance Patient limited by fatigue;Patient limited by pain Nurse Made Aware RN Ruchi aware of mobility/eval. Told Ruchi that pt. pulled ID wristband off. Safety Devices Safety Devices in Place (call hawkins in reach) Plan Treatment/Interventions Gait training;TKR protocol;Therapeutic exercise;Stair training PT Frequency 5-7x/wk;Once per day Care Duration (# of days) 7 # of days Recommendation Recommendations OP PT Recommendation Comments Difficulty performing PT at home. Pt. stating that house is too ful l of "stuff". Recommend outpatient PT. He will need assist getting to appointments. Step fa ther is in poor health/presently in the hospital. Functional Limitation - G Codes Mobility: Walking & Moving Around: $[id number] Current Status : CJ - At least 20% but less than 40% impaired, limited or restricted $[id number] Projected Goal Status : CI - At least 1% but less than 20% impaired, limited or rest ricted Rationale: Tinetti VISHAL 20 Limitations due to pain/decreased strength L knee from rece nt TKR onver elsy Transaction, Provider Unknown - 01/29/2015 1:05 PM PDT Case Management by Sophy Wheeler RN at 01/29/15 1305 Author: Sophy Wheeler RN Service: (none) Author Type: Registered Nurse Filed: 01/29/15 1308 Date of Service: 01/29/151304 Status: Signed Juvenile Justice Officer: Sophy Wheeler RN (Registered Nurse) 01/29/15 1255 Discharge Planning Evaluation Admitting Diagnosis Renal insufficiency Readmission No Living Arrangements Other (Comment) (chris knox) Support Systems Other (Comment) (step father Jacobo ) Type of Residence Private residence Independent with ADL's Yes Independent with Mobility Yes Home Care Services No Mental Status Oriented Anticipated Discharge Plan Post Acute Care Needs None at this time Plan communicated to patient/family Yes Resources Financial concerns No Transportation issues Yes (states he was brought here by ambulance and there is "no one to help get me back home") Patient/Family concerns No Prescription Plan Yes Anticipated Disposition Facility Type Home Medicare Important Message (MELVIN) Not applicable Met with: patient and discussed discharge planning, Pt is a 39 y.o., male Patient's PCP is: KIP DOTSON Patient's insurance: Medicaid Coverage concerns: none Medication coverage/concerns: none [facility] Bedside Delivery: no Community resources utilized / needed: none Assistance in transportation: "states that he has no way home since he was brought in by am bulance". Patient eligible for [employer] w/ Transportation Benefit. Call ahead as soon as possible with discharge date. [phone] Identification of any specific education / training: none Barriers to Discharge / Alternative housing needed: none Anticipated DCP: home with step father Sophy Wheeler Joy Taylor RPH - 01/29/2015 12:02 AM PDTFormatting of this note might be different from t rosa maria original. Progress Notes by Joy Pan RPH at 01/29/151 Author: Joy Pan RPH Service: (none) Author Type: Pharmacist Filed: 01/29/151 Date of Service: 01/29/151 Status: Signed Juvenile Justice Officer: Joy Pan RPH (Pharmacist) Clinical Pharmacy Note - Renal Dose Adjustment Endy Frost 39 y.o. male Ht Readings from Last 1 Encounters: 01/28/15 1.88 m (6' 2") Wt Readings from Last 1 Encounters: 01/28/15 169.328 kg (373 lb 4.8 oz) CREATININE Date Value Ref Range Status 01/28/2015 3.4* 0.70 - 1.30 mg/dL Final Comment: Testing performed at [facility];[address] [place] [address];[place] [address] CREATININE: 3.4 mg/dL ABNORMAL (01/28/15 1915) Estimated creatinine clearance - 49.2 mL/min Pharmacy to renally adjust medications per Dr. Zavala Plan: No medications will require renal dose adjustment based on patient's current estimate d Crcl. Pharmacy will continue to follow and adjust as appropriate. Pharmacist: Joy Pan 01/29/2015 12:02 AM documente d in this encounter Plan of Treatment Not on filedocumented as of this encounter Procedures + +--------+ + + + | Procedure Name | Priori | Date/Time | Associated Diagnosis | Comments | | | ty | | | | + +--------+ + + + | EXTERNAL LAB: CBC | Routin | 01/31/2015 | | Results for this | | | e | 3:11 AM | | procedure are in the | | | | PDT | | results section. | + +--------+ + + + | MAGNESIUM | Routin | 01/31/2015 | | Results for this | | | e | 3:11 AM | | procedure are in the | | | | PDT | | results section. | + +--------+ + + + | COMPREHENSIVE | Routin | 01/31/2015 | | Results for this | | METABOLIC PANEL | e | 3:11 AM | | procedure are in the | | | | PDT | | results section. | + +--------+ + + + | EXTERNAL LAB: CBC | Routin | 01/30/2015 | | Results for this | | | e | 5:12 AM | | procedure are in the | | | | PDT | | results section. | + +--------+ + + + | MAGNESIUM | Routin | 01/30/2015 | | Results for this | | | e | 5:12 AM | | procedure are in the | | | | PDT | | results section. | + +--------+ + + + | COMPREHENSIVE | Routin | 01/30/2015 | | Results for this | | METABOLIC PANEL | e | 5:12 AM | | procedure are in the | | | | PDT | | results section. | + +--------+ + + + | EXTERNAL LAB: JYOTI | Routin | 01/29/2015 | | Results for this | | | e | 3:44 AM | | procedure are in the | | | | PDT | | results section. | + +--------+ + + + | BASIC METABOLIC | Routin | 01/29/2015 | | Results for this | | PANEL | e | 3:44 AM | | procedure are in the | | | | PDT | | results section. | + +--------+ + + + | EXTERNAL LAB: JYOTI | Routin | 01/28/2015 | | Results for this | | | e | 7:15 PM | | procedure are in the | | | | PDT | | results section. | + +--------+ + + + | DRUGS OF ABUSE | Routin | 01/28/2015 | | Results for this | | SCREEN, URINE (H) | e | 7:15 PM | | procedure are in the | | | | PDT | | results section. | + +--------+ + + + | DRUG OF ABUSE, | Routin | 01/28/2015 | | Results for this | | AMPHET/METHAMPHET BY | e | 7:15 PM | | procedure are in the | | GC/MS | | PDT | | results section. | + +--------+ + + + | MYOGLOBIN, URINE | Routin | 01/28/2015 | | Results for this | | | e | 7:15 PM | | procedure are in the | | | | PDT | | results section. | + +--------+ + + + | TSH | Routin | 01/28/2015 | | Results for this | | | e | 7:15 PM | | procedure are in the | | | | PDT | | results section. | + +--------+ + + + | PHOSPHORUS | Routin | 01/28/2015 | | Results for this | | | e | 7:15 PM | | procedure are in the | | | | PDT | | results section. | + +--------+ + + + | MAGNESIUM | Routin | 01/28/2015 | | Results for this | | | e | 7:15 PM | | procedure are in the | | | | PDT | | results section. | + +--------+ + + + | CK TOTAL | Routin | 01/28/2015 | | Results for this | | | e | 7:15 PM | | procedure are in the | | | | PDT | | results section. | + +--------+ + + + | COMPREHENSIVE | Routin | 01/28/2015 | | Results for this | | METABOLIC PANEL | e | 7:15 PM | | procedure are in the | | | | PDT | | results section. | + +--------+ + + + documented in this encounter Results External Lab: CBC (01/31/2015 3:11 AM PDT) + + + + + + | Component | Value | Ref Range | Performed | Pathologist | | | | | At | Signature | + + + + + + | WBC | 5.62Comment: Testing | 3.80 - 11.00 | EXTERNAL | | | | performed at [facility], [address] | K/uL | LAB | | | | [address], | | | | | | [place] [address] | | | | + + + + + + | Red Blood | 3.79 (L)Comment: Testing | 4.20 - 5.70 | EXTERNAL | | | Cells | performed at [facility], [address] | M/uL | LAB | | | Counted | [address], | | | | | | [place] [address] | | | | + + + + + + | Hemoglobin | 11.2 (L)Comment: Testing | 13.2 - 17.0 | EXTERNAL | | | | performed at [facility], [address] | g/dL | LAB | | | | [address], | | | | | | [place] [address] | | | | + + + + + + | Hematocrit, | 33.6 (L)Comment: Testing | 39.0 - 50.0 % | EXTERNAL | | | POC | performed at [facility], [address] | | LAB | | | | [address], | | | | | | [place] [address] | | | | + + + + + + | MCV | 88.6Comment: Testing | 80.0 - 100.0 fl | EXTERNAL | | | | performed at [facility], [address] | | LAB | | | | [address], | | | | | | [place] [address] | | | | + + + + + + | MCH | 29.6Comment: Testing | 27.0 - 34.0 pg | EXTERNAL | | | | performed at [facility], [address] | | LAB | | | | [address], | | | | | | [place] [address] | | | | + + + + + + | MCHC | 33.4Comment: Testing | 32.0 - 35.5 | EXTERNAL | | | | performed at [facility], [address] | g/dL | LAB | | | | [address], | | | | | | [place] [address] | | | | + + + + + + | RDW-CV | 38.1Comment: Testing | 37 - 53 fl | EXTERNAL | | | | performed at [facility], [address] | | LAB | | | | [address], | | | | | | [place] [address] | | | | + + + + + + | Platelet | 180Comment: Testing | 150 - 400 K/uL | EXTERNAL | | | Count | performed at [facility], [address] | | LAB | | | Plasma | [address], | | | | | | [place] [address] | | | | + + + + + + | MPV | 11.2Comment: Testing | fl | EXTERNAL | | | | performed at [facility], [address] | | LAB | | | | [address], | | | | | | [place] [address] | | | | + + + + + + | Differentia | AUTOMATEDComment: | | EXTERNAL | | | l Type | Testing performed at | | LAB | | | | [facility], [address] | | | | | | [place] | | | | | | [address] | | | | + + + + + + | % Segmented | 70.44Comment: Testing | % | EXTERNAL | | | | performed at [facility], [address] | | LAB | | | Neutrophils | [address], | | | | | | [place] [address] | | | | + + + + + + | % | 19.69Comment: Testing | % | EXTERNAL | | | Lymphocytes | performed at [facility], [address] | | LAB | | | | [address], | | | | | | [place] [address] | | | | + + + + + + | % Monocytes | 8.26Comment: Testing | % | EXTERNAL | | | | performed at [facility], [address] | | LAB | | | | [address], | | | | | | [place] [address] | | | | + + + + + + | % | 1.29Comment: Testing | % | EXTERNAL | | | Eosinophils | performed at [facility], [address] | | LAB | | | | [address], | | | | | | [place] [address] | | | | + + + + + + | % Basophils | 0.32Comment: Testing | % | EXTERNAL | | | | performed at [facility], [address] | | LAB | | | | [address], | | | | | | [place] [address] | | | | + + + + + + | Absolute | 3.96Comment: Testing | 1.90 - 7.40 | EXTERNAL | | | Segmented | performed at [facility], [address] | K/uL | LAB | | | Neutrophils | [address], | | | | | | [place] [address] | | | | + + + + + + | Absolute | 1.11Comment: Testing | 1.00 - 3.90 | EXTERNAL | | | Lymphocytes | performed at [facility], [address] | K/uL | LAB | | | | [address], | | | | | | [place] [address] | | | | + + + + + + | Absolute | 0.46Comment: Testing | 0.00 - 0.80 | EXTERNAL | | | Monocytes | performed at [facility], [address] | K/uL | LAB | | | | [address], | | | | | | [place] [address] | | | | + + + + + + | Absolute | 0.07Comment: Testing | 0.00 - 0.50 | EXTERNAL | | | Eosinophils | performed at [facility], [address] | K/uL | LAB | | | | [address], | | | | | | [place] [address] | | | | + + + + + + | Absolute | 0.02Comment: Testing | 0.00 - 0.10 | EXTERNAL | | | Basophils | performed at [facility], [address] | K/uL | LAB | | | | [address], | | | | | | [place] [address] | | | | + + + + + + + + | Specimen | + + | Blood specimen | | (specimen) | + + + +---------+ + + | Performing | Address | City/State/Zipcode | Phone Number | | Organization | | | | + +---------+ + + | EXTERNAL LAB | | | | + +---------+ + + Magnesium (01/31/2015 3:11 AM PDT) + + + + + + | Component | Value | Ref Range | Performed | Pathologist | | | | | At | Signature | + + + + + + | Magnesium | 1.6 (L)Comment: Testing | 1.7 - 2.4 mg/dL | EXTERNAL | | | | performed at [facility], [address] | | LAB | | | | [address], | | | | | | [place] [address] | | | | + + + + + + + + | Specimen | + + | Blood specimen | | (specimen) | + + + +---------+ + + | Performing | Address | City/State/Zipcode | Phone Number | | Organization | | | | + +---------+ + + | EXTERNAL LAB | | | | + +---------+ + + Comprehensive Metabolic Panel (01/31/2015 3:11 AM PDT) + + + + + + | Component | Value | Ref Range | Performed | Pathologist | | | | | At | Signature | + + + + + + | Na | 134 (L)Comment: Testing | 135 - 143 | EXTERNAL | | | | performed at [facility], [address] | mmol/L | LAB | | | | [address], | | | | | | [place] [address] | | | | + + + + + + | K | 4.0Comment: Testing | 3.5 - 4.9 | EXTERNAL | | | | performed at [facility], [address] | mmol/L | LAB | | | | [address], | | | | | | [place] [address] | | | | + + + + + + | Cl | 105Comment: Testing | 99 - 109 mmol/L | EXTERNAL | | | | performed at [facility], [address] | | LAB | | | [address], | | | | | | [place] [address] | | | | + + + + + + | CO2 | 24Comment: Testing | 23 - 32 mmol/L | EXTERNAL | | | | performed at [facility], [address] | | LAB | | | | [address], | | | | | | [place] [address] | | | | + + + + + + | Anion Gap | 9Comment: Testing | 5 - 20 mmol/L | EXTERNAL | | | | performed at [facility], [address] | | LAB | | | | [address], | | | | | | [place] [address] | | | | + + + + + + | Glucose, | 108 (H)Comment: Testing | 65 - 99 mg/dL | EXTERNAL | | | Fasting | performed at [facility], [address] | | LAB | | | | [address], | | | | | | [place] [address] | | | | + + + + + + | BUN | 21Comment: Testing | 8 - 25 mg/dL | EXTERNAL | | | | performed at [facility], [address] | | LAB | | | | [address], | | | | | | [place] [address] | | | | + + + + + + | Creatinine | 1.12Comment: Testing | 0.70 - 1.30 | EXTERNAL | | | | performed at [facility], [address] | mg/dL | LAB | | | | [address], | | | | | | [place] [address] | | | | + + + + + + | BUN/Creatin | 19Comment: Testing | | EXTERNAL | | | ine Ratio | performed at [facility], [address] | | LAB | | | | [address], | | | | | | [place] [address] | | | | + + + + + + | Calcium | 9.5Comment: Testing | 8.5 - 10.5 | EXTERNAL | | | | performed at [facility], [address] | mg/dL | LAB | | | | [address], | | | | | | [place] [address] | | | | + + + + + + | Protein, | 6.6Comment: Testing | 6.3 - 8.2 g/dL | EXTERNAL | | | Total | performed at [facility], [address] | | LAB | | | | [address], | | | | | | [place] [address] | | | | + + + + + + | Albumin | 3.9Comment: Testing | 3.6 - 5.0 g/dL | EXTERNAL | | | | performed at [facility], [address] | | LAB | | | | [address], | | | | | | [place] [address] | | | | + + + + + + | Globulin | 2.7Comment: Testing | 1.3 - 4.9 g/dL | EXTERNAL | | | | performed at [facility], [address] | | LAB | | | | [address], | | | | | | [place] [address] | | | | + + + + + + | A/G Ratio | 1.4Comment: Testing | 1.0 - 2.4 | EXTERNAL | | | | performed at [facility], [address] | | LAB | | | | [address], | | | | | | [place] [address] | | | | + + + + + + | Bilirubin | 0.6Comment: Testing | 0.1 - 1.5 mg/dL | EXTERNAL | | | Total | performed at [facility], [address] | | LAB | | | | [address], | | | | | | [place] [address] | | | | + + + + + + | ALP, | 48Comment: Testing | 35 - 115 U/L | EXTERNAL | | | External | performed at [facility], [address] | | LAB | | | | [address], | | | | | | [place] [address] | | | | + + + + + + | AST | 26Comment: Testing | 10 - 45 U/L | EXTERNAL | | | | performed at [facility], [address] | | LAB | | | | [address], | | | | | | [place] [address] | | | | + + + + + + | ALT | 45Comment: Testing | 10 - 65 U/L | EXTERNAL | | | | performed at [facility], [address] | | LAB | | | | [address], | | | | | | [place] [address] | | | | + + + + + + | Estimated | >60Comment: GFR <60: | mL/min/1.73m2 | EXTERNAL | | | GFR | CHRONIC KIDNEY DISEASE, | | LAB | | | | IF FOUND OVER A 3 MONTH | | | | | | PERIOD.GFR <15: KIDNEY | | | | | | FAILURE.FOR | | | | | | AMERICANS, MULTIPLY THE | | | | | | CALCULATED GFR BY | | | | | | 1.210.Testing performed | | | | | | at [facility], [address] | | | | | | [address], | | | | | | [place] [address] | | | | + + + [...] + +---------+ + + External Lab: CBC (01/30/2015 5:12 AM PDT) + + + + + + | Component | Value | Ref Range | Performed | Pathologist | | | | | At | Signature | + + + + + + | WBC | 6.19Comment: Testing | 3.80 - 11.00 | EXTERNAL | | | | performed at [facility], [address] | K/uL | LAB | | | | [address], | | | | | | [place] [address] | | | | + + + + + + | Red Blood | 3.87 (L)Comment: Testing | 4.20 - 5.70 | EXTERNAL | | | Cells | performed at [facility], [address] | M/uL | LAB | | | Counted | [address], | | | | | | [place] [address] | | | | + + + + + + | Hemoglobin | 11.5 (L)Comment: Testing | 13.2 - 17.0 | EXTERNAL | | | | performed at [facility], [address] | g/dL | LAB | | | | [address], | | | | | | [place] [address] | | | | + + + + + + | Hematocrit, | 34.1 (L)Comment: Testing | 39.0 - 50.0 % | EXTERNAL | | | POC | performed at [facility], [address] | | LAB | | | | [address], | | | | | | [place] [address] | | | | + + + + + + | MCV | 88.1Comment: Testing | 80.0 - 100.0 fl | EXTERNAL | | | | performed at [facility], [address] | | LAB | | | | [address], | | | | | | [place] [address] | | | | + + + + + + | MCH | 29.6Comment: Testing | 27.0 - 34.0 pg | EXTERNAL | | | | performed at [facility], [address] | | LAB | | | | [address], | | | | | | [place] [address] | | | | + + + + + + | MCHC | 33.6Comment: Testing | 32.0 - 35.5 | EXTERNAL | | | | performed at [facility], [address] | g/dL | LAB | | | | [address], | | | | | | [place] [address] | | | | + + + + + + | RDW-CV | 39.4Comment: Testing | 37 - 53 fl | EXTERNAL | | | | performed at [facility], [address] | | LAB | | | | [address], | | | | | | [place] [address] | | | | + + + + + + | Platelet | 194Comment: Testing | 150 - 400 K/uL | EXTERNAL | | | Count | performed at [facility], [address] | | LAB | | | Plasma | [address], | | | | | | [place] [address] | | | | + + + + + + | MPV | 10.8Comment: Testing | fl | EXTERNAL | | | | performed at [facility], [address] | | LAB | | | | [address], | | | | | | [place] [address] | | | | + + + + + + | Differentia | AUTOMATEDComment: | | EXTERNAL | | | l Type | Testing performed at | | LAB | | | | [facility], [address] | | | | | | [place] | | | | | | [address] | | | | + + + + + + | % Segmented | 71.78Comment: Testing | % | EXTERNAL | | | | performed at [facility], [address] | | LAB | | | Neutrophils | [address], | | | | | | [place] [address] | | | | + + + + + + | % | 19.78Comment: Testing | % | EXTERNAL | | | Lymphocytes | performed at [facility], [address] | | LAB | | | | [address], | | | | | | [place] [address] | | | | + + + + + + | % Monocytes | 6.25Comment: Testing | % | EXTERNAL | | | | performed at [facility], [address] | | LAB | | | | [address], | | | | | | [place] [address] | | | | + + + + + + | % | 1.55Comment: Testing | % | EXTERNAL | | | Eosinophils | performed at [facility], [address] | | LAB | | | | [address], | | | | | | [place] [address] | | | | + + + + + + | % Basophils | 0.64Comment: Testing | % | EXTERNAL | | | | performed at [facility], [address] | | LAB | | | | [address], | | | | | | [place] [address] | | | | + + + + + + | Absolute | 4.44Comment: Testing | 1.90 - 7.40 | EXTERNAL | | | Segmented | performed at [facility], [address] | K/uL | LAB | | | Neutrophils | [address], | | | | | | [place] [address] | | | | + + + + + + | Absolute | 1.22Comment: Testing | 1.00 - 3.90 | EXTERNAL | | | Lymphocytes | performed at [facility], [address] | K/uL | LAB | | | | [address], | | | | | | [place] [address] | | | | + + + + + + | Absolute | 0.39Comment: Testing | 0.00 - 0.80 | EXTERNAL | | | Monocytes | performed at [facility], [address] | K/uL | LAB | | | | [address], | | | | | | [place] [address] | | | | + + + + + + | Absolute | 0.10Comment: Testing | 0.00 - 0.50 | EXTERNAL | | | Eosinophils | performed at [facility], [address] | K/uL | LAB | | | | [address], | | | | | | [place] [address] | | | | + + + + + + | Absolute | 0.04Comment: Testing | 0.00 - 0.10 | EXTERNAL | | | Basophils | performed at [facility], [address] | K/uL | LAB | | | | [address], | | | | | | [place] [address] | | | | + + + + + + + + | Specimen | + + | Blood specimen | | (specimen) | + + + +---------+ + + | Performing | Address | City/State/Zipcode | Phone Number | | Organization | | | | + +---------+ + + | EXTERNAL LAB | | | | + +---------+ + + Magnesium (01/30/2015 5:12 AM PDT) + + + + + + | Component | Value | Ref Range | Performed | Pathologist | | | | | At | Signature | + + + + + + | Magnesium | 1.8Comment: Testing | 1.7 - 2.4 mg/dL | EXTERNAL | | | | performed at [facility], [address] | | LAB | | | | [address], | | | | | | [place] [address] | | | | + + + + + + + + | Specimen | + + | Blood specimen | | (specimen) | + + + +---------+ + + | Performing | Address | City/State/Zipcode | Phone Number | | Organization | | | | + +---------+ + + | EXTERNAL LAB | | | | + +---------+ + + Comprehensive Metabolic Panel (01/30/2015 5:12 AM PDT) + + + + + + | Component | Value | Ref Range | Performed | Pathologist | | | | | At | Signature | + + + + + + | Na | 133 (L)Comment: Testing | 135 - 143 | EXTERNAL | | | | performed at [facility], [address] | mmol/L | LAB | | | | [address], | | | | | | [place] [address] | | | | + + + + + + | K | 4.1Comment: Testing | 3.5 - 4.9 | EXTERNAL | | | | performed at [facility], [address] | mmol/L | LAB | | | | [address], | | | | | | [place] [address] | | | | + + + + + + | Cl | 104Comment: Testing | 99 - 109 mmol/L | EXTERNAL | | | | performed at [facility], [address] | | LAB | | | | [address], | | | | | | [place] [address] | | | | + + + + + + | CO2 | 23Comment: Testing | 23 - 32 mmol/L | EXTERNAL | | | | performed at [facility], [address] | | LAB | | | | [address], | | | | | | [place] [address] | | | | + + + + + + | Anion Gap | 10Comment: Testing | 5 - 20 mmol/L | EXTERNAL | | | | performed at [facility], [address] | | LAB | | | | [address], | | | | | | [place] [address] | | | | + + + + + + | Glucose, | 103 (H)Comment: Testing | 65 - 99 mg/dL | EXTERNAL | | | Fasting | performed at [facility], [address] | | LAB | | | | [address], | | | | | | [place] [address] | | | | + + + + + + | BUN | 37 (H)Comment: Testing | 8 - 25 mg/dL | EXTERNAL | | | | performed at [facility], [address] | | LAB | | | | [address], | | | | | | [place] [address] | | | | + + + + + + | Creatinine | 1.37 (H)Comment: Testing | 0.70 - 1.30 | EXTERNAL | | | | performed at [facility], [address] | mg/dL | LAB | | | | [address], | | | | | | [place] [address] | | | | + + + + + + | BUN/Creatin | 27Comment: Testing | | EXTERNAL | | | ine Ratio | performed at [facility], [address] | | LAB | | | | [address], | | | | | | [place] [address] | | | | + + + + + + | Calcium | 9.7Comment: Testing | 8.5 - 10.5 | EXTERNAL | | | | performed at [facility], [address] | mg/dL | LAB | | | | [address], | | | | | | [place] [address] | | | | + + + + + + | Protein, | 6.4Comment: Testing | 6.3 - 8.2 g/dL | EXTERNAL | | | Total | performed at [facility], [address] | | LAB | | | [address], | | | | | | [place] [address] | | | | + + + + + + | Albumin | 3.9Comment: Testing | 3.6 - 5.0 g/dL | EXTERNAL | | | | performed at [facility], [address] | | LAB | | | | [address], | | | | | | [place] [id number] | | | | + + + + + + | Globulin | 2.5Comment: Testing | 1.3 - 4.9 g/dL | EXTERNAL | | | | performed at [facility], [address] | | LAB | | | | [address], | | | | | | [place] [id number] | | | | + + + + + + | A/G Ratio | 1.6Comment: Testing | 1.0 - 2.4 | EXTERNAL | | | | performed at [facility], [address] | | LAB | | | | [address], | | | | | | [place] [address] | | | | + + + + + + | Bilirubin | 0.7Comment: Testing | 0.1 - 1.5 mg/dL | EXTERNAL | | | Total | performed at [facility], [address] | | LAB | | | | [address], | | | | | | [place] [id number] | | | | + + + + + + | ALP, | 47Comment: Testing | 35 - 115 U/L | EXTERNAL | | | External | performed at [facility], [address] | | LAB | | | | [address], | | | | | | [place] [id number] | | | | + + + + + + | AST | 28Comment: Testing | 10 - 45 U/L | EXTERNAL | | | | performed at [facility], [address] | | LAB | | | | [address], | | | | | | [place] [address] | | | | + + + + + + | ALT | 51Comment: Testing | 10 - 65 U/L | EXTERNAL | | | | performed at [facility], [address] | | LAB | | | | [address], | | | | | | [place] [address] | | | | + + + + + + | Estimated | >60Comment: GFR <60: | mL/min/1.73m2 | EXTERNAL | | | GFR | CHRONIC KIDNEY DISEASE, | | LAB | | | | IF FOUND OVER A 3 MONTH | | | | | | PERIOD.GFR <15: KIDNEY | | | | | | FAILURE.FOR | | | | | | AMERICANS, MULTIPLY THE | | | | | | CALCULATED GFR BY | | | | | | 1.210.Testing performed | | | | | | at [facility], [address] | | | | | | [address], | | | | | | [place] [address] | | | | + + + + + + + + | Specimen | + + | Blood specimen | | (specimen) | + + + +---------+ + + | Performing | Address | City/State/Zipcode | Phone Number | | Organization | | | | + +---------+ + + | EXTERNAL LAB | | | | + +---------+ + + External Lab: JYOTI (01/29/2015 3:44 AM PDT) + + + + + + | Component | Value | Ref Range | Performed | Pathologist | | | | | At | Signature | + + + + + + | WBC | 7.58Comment: Testing | 3.80 - 11.00 | EXTERNAL | | | | performed at [facility], [address] | K/uL | LAB | | | | [address], | | | | | | [place] [address] | | | | + + + + + + | Red Blood | 3.65 (L)Comment: Testing | 4.20 - 5.70 | EXTERNAL | | | Cells | performed at [facility], [address] | M/uL | LAB | | | Counted | [address], | | | | | | [place] [address] | | | | + + + + + + | Hemoglobin | 10.9 (L)Comment: Testing | 13.2 - 17.0 | EXTERNAL | | | | performed at [facility], [address] | g/dL | LAB | | | | [address], | | | | | | [place] [address] | | | | + + + + + + | Hematocrit, | 32.7 (L)Comment: Testing | 39.0 - 50.0 % | EXTERNAL | | | POC | performed at [facility], [address] | | LAB | | | | [address], | | | | | | [place] [address] | | | | + + + + + + | MCV | 89.6Comment: Testing | 80.0 - 100.0 fl | EXTERNAL | | | | performed at [facility], [address] | | LAB | | | | [address], | | | | | | [place] [address] | | | | + + + + + + | MCH | 29.7Comment: Testing | 27.0 - 34.0 pg | EXTERNAL | | | | performed at [facility], [address] | | LAB | | | | [address], | | | | | | [place] [address] | | | | + + + + + + | MCHC | 33.2Comment: Testing | 32.0 - 35.5 | EXTERNAL | | | | performed at [facility], [address] | g/dL | LAB | | | | [address], | | | | | | [place] [address] | | | | + + + + + + | RDW-CV | 38.1Comment: Testing | 37 - 53 fl | EXTERNAL | | | | performed at [facility], [address] | | LAB | | | | [address], | | | | | | [place] [address] | | | | + + + + + + | Platelet | 226Comment: Testing | 150 - 400 K/uL | EXTERNAL | | | Count | performed at [facility], [address] | | LAB | | | Plasma | [address], | | | | | | [place] [address] | | | | + + + + + + | MPV | 11.1Comment: Testing | fl | EXTERNAL | | | | performed at [facility], [address] | | LAB | | | | [address], | | | | | | [place] [address] | | | | + + + + + + | Differentia | AUTOMATEDComment: | | EXTERNAL | | | l Type | Testing performed at | | LAB | | | | [facility], [address] | | | | | | [place] | | | | | | [address] | | | | + + + + + + | % Segmented | 66.66Comment: Testing | % | EXTERNAL | | | | performed at [facility], [address] | | LAB | | | Neutrophils | [address], | | | | | | [place] [address] | | | | + + + + + + | % | 22.99Comment: Testing | % | EXTERNAL | | | Lymphocytes | performed at [facility], [address] | | LAB | | | | [address], | | | | | | [place] [address] | | | | + + + + + + | % Monocytes | 8.58Comment: Testing | % | EXTERNAL | | | | performed at [facility], [address] | | LAB | | | | [address], | | | | | | [place] [address] | | | | + + + + + + | % | 1.28Comment: Testing | % | EXTERNAL | | | Eosinophils | performed at [facility], [address] | | LAB | | | | [address], | | | | | | [place] [address] | | | | + + + + + + | % Basophils | 0.49Comment: Testing | % | EXTERNAL | | | | performed at [facility], [address] | | LAB | | | | [address], | | | | | | [place] [address] | | | | + + + + + + | Absolute | 5.05Comment: Testing | 1.90 - 7.40 | EXTERNAL | | | Segmented | performed at [facility], [address] | K/uL | LAB | | | Neutrophils | [address], | | | | | | [place] [address] | | | | + + + + + + | Absolute | 1.74Comment: Testing | 1.00 - 3.90 | EXTERNAL | | | Lymphocytes | performed at [facility], [address] | K/uL | LAB | | | | [address], | | | | | | [place] [address] | | | | + + + + + + | Absolute | 0.65Comment: Testing | 0.00 - 0.80 | EXTERNAL | | | Monocytes | performed at [facility], [address] | K/uL | LAB | | | | [address], | | | | | | [place] [address] | | | | + + + + + + | Absolute | 0.10Comment: Testing | 0.00 - 0.50 | EXTERNAL | | | Eosinophils | performed at [facility], [address] | K/uL | LAB | | | | [address], | | | | | | [place] [address] | | | | + + + + + + | Absolute | 0.04Comment: Testing | 0.00 - 0.10 | EXTERNAL | | | Basophils | performed at [facility], [address] | K/uL | LAB | | | | [address], | | | | | | [place] [address] | | | | + + + [...] + +---------+ + + Basic Metabolic Panel (01/29/2015 3:44 AM PDT) + + + + + + | Component | Value | Ref Range | Performed | Pathologist | | | | | At | Signature | + + + + + + | Na | 133 (L)Comment: Testing | 135 - 143 | EXTERNAL | | | | performed at [facility], [address] | mmol/L | LAB | | | | [address], | | | | | | [place] [address] | | | | + + + + + + | K | 4.0Comment: Testing | 3.5 - 4.9 | EXTERNAL | | | | performed at [facility], [address] | mmol/L | LAB | | | | [address], | | | | | | [place], [place] [address] | | | | + + + + + + | Cl | 104Comment: Testing | 99 - 109 mmol/L | EXTERNAL | | | | performed at [facility], [address] | | LAB | | | | [address], | | | | | | [place], [place] [address] | | | | + + + + + + | CO2 | 23Comment: Testing | 23 - 32 mmol/L | EXTERNAL | | | | performed at [facility], [address] | | LAB | | | | [address], | | | | | | [place] [address] | | | | + + + + + + | Anion Gap | 10Comment: Testing | 5 - 20 mmol/L | EXTERNAL | | | | performed at [facility], [address] | | LAB | | | | [address], | | | | | | [place] [address] | | | | + + + + + + | Glucose, | 103 (H)Comment: Testing | 65 - 99 mg/dL | EXTERNAL | | | Fasting | performed at [facility], [address] | | LAB | | | | [address], | | | | | | [place] [address] | | | | + + + + + + | BUN | 65 (H)Comment: Testing | 8 - 25 mg/dL | EXTERNAL | | | | performed at [facility], [address] | | LAB | | | | [address], | | | | | | [place] [address] | | | | + + + + + + | Creatinine | 2.76 (H)Comment: Testing | 0.70 - 1.30 | EXTERNAL | | | | performed at [facility], [address] | mg/dL | LAB | | | | [address], | | | | | | [place] [address] | | | | + + + + + + | BUN/Creatin | 24Comment: Testing | | EXTERNAL | | | ine Ratio | performed at [facility], [address] | | LAB | | | | [address], | | | | | | [place] [address] | | | | + + + + + + | Calcium | 9.0Comment: Testing | 8.5 - 10.5 | EXTERNAL | | | | performed at [facility], [address] | mg/dL | LAB | | | | [address], | | | | | | [place] [address] | | | | + + + + + + | Estimated | 28 (L)Comment: GFR <60: | mL/min/1.73m2 | EXTERNAL | | | GFR | CHRONIC KIDNEY DISEASE, | | LAB | | | | IF FOUND OVER A 3 MONTH | | | | | | PERIOD.GFR <15: KIDNEY | | | | | | FAILURE.FOR | | | | | | AMERICANS, MULTIPLY THE | | | | | | CALCULATED GFR BY | | | | | | 1.210.Testing performed | | | | | | at [facility], [address] | | | | [address], | | | | | | [place] [address] | | | | + + + + + + + + | Specimen | + + | Blood specimen | | (specimen) | + + + +---------+ + + | Performing | Address | City/State/Zipcode | Phone Number | | Organization | | | | + +---------+ + + | EXTERNAL LAB | | | | + +---------+ + + CARLIE, Amphet/Methamphet,GC/MS (01/28/2015 7:15 PM PDT) + + + + + + | Component | Value | Ref Range | Performed | Pathologist | | | | | At | Signature | + + + + + + | Amphetamine | POSITIVE (A)Comment: | | EXTERNAL | | | s | The cutoff for a | | LAB | | | | positive AMP is 1000 | | | | | | ng/mL.Testing performed | | | | | | at [facility];[address];[place] [address] | | | | + + + + + + | Methampheta | NEGATIVEComment: The | | EXTERNAL | | | mine | cutoff for a positive | | LAB | | | Screen, UA, | mAMP is 1000 | | | | | POC | ng/mL.Testing performed | | | | | | at [facility];[address] | | | | [address];[place] [address] | | | | + + + + + + + + | Specimen | + + | | + + + +---------+ + + | Performing | Address | City/State/Zipcode | Phone Number | | Organization | | | | + +---------+ + + | EXTERNAL LAB | | | | + +---------+ + + Drugs Of ABuse Screen, Urine (H) (01/28/2015 7:15 PM PDT) + + + + + + | Component | Value | Ref Range | Performed | Pathologist | | | | | At | Signature | + + + + + + | Methampheta | POSITIVE (A)Comment: | | EXTERNAL | | | mine/ | Positive cutoff for | | LAB | | | Amphetamine | AMP = 1000 ng/mLTesting | | | | | Screen, | performed at [facility];[address] | | | | | UA, POC | [address];[place] | | | | | | [address] | | | | + + + + + + | Barbiturate | NEGATIVEComment: | | EXTERNAL | | | s Screen, | Positive cutoff for | | LAB | | | Urine | KOBI = 200 ng/mLTesting | | | | | | performed at [facility];[address] | | | | | | [address];[place] | | | | | | [address] | | | | + + + + + + | Benzodiazep | NEGATIVEComment: | | EXTERNAL | | | vidhya | Positive cutoff for | | LAB | | | Screen, | BENZO = 200 ng/mLTesting | | | | | Urine | performed at [facility];[address] | | | | | | [address];[place] | | | | | | [address] | | | | + + + + + + | Cocaine | NEGATIVEComment: | | EXTERNAL | | | | Positive cutoff for | | LAB | | | | JENIFER = 300 ng/mLTesting | | | | | | performed at [facility];[address] | | | | | | [address];[place] | | | | | | [address] | | | | + + + + + + | Methadone | NEGATIVEComment: | | EXTERNAL | | | | Positive cutoff for | | LAB | | | | MTD = 300 ng/mLTesting | | | | | | performed at [facility];[address] | | | | | | [address];[place] | | | | | | [address] | | | | + + + + + + | Opiates | POSITIVE (A)Comment: | | EXTERNAL | | | | Positive cutoff for | | LAB | | | | OPI = 300 ng/mLTesting | | | | | | performed at [facility];[address] | | | | | | [address];[place] | | | | | | [address] | | | | + + + + + + | PCP | NEGATIVEComment: | | EXTERNAL | | | | Positive cutoff for PCP | | LAB | | | | = 25 ng/mLTesting | | | | | | performed at [facility];[address] | [address] | | [address];[place] | | | | | | [address] | | | | + + + + + + | Cannabinoid | NEGATIVEComment: | | EXTERNAL | | | s Screen, | Positive cutoff for THC | | LAB | | | Serum | = 50 ng/mLThe above are | | | | | | unconfirmed screening | | | | | | results. These results | | | | | | are to be used only for | | | | | | medical | | | | | | (i.e.,treatment) | | | | | | purposes. Unconfirmed | | | | | | screening results must | | | | | | not be used for | | | | | | non-medical purposes | | | | | | (e.g., employment | | | | | | testing, legal | | | | | | testing).Testing | | | | | | performed at [facility] | | | | | | [facility];[place], [place] | | | | | | [address] | | | | + + + + + + + + | Specimen | + + | Urine specimen | | (specimen) | + + + +---------+ + + | Performing | Address | City/State/Zipcode | Phone Number | | Organization | | | | + +---------+ + + | EXTERNAL LAB | | | | + +---------+ + + Myoglobin, Urine (01/28/2015 7:15 PM PDT) + + + + + + | Component | Value | Ref Range | Performed | Pathologist | | | | | At | Signature | + + + + + + | Myoglobin | NEGATIVEComment: Testing | | EXTERNAL | | | | performed at [facility] | | LAB | | | | [address];[place] | | | | | | [address] | | | | + + + [...] + +---------+ + + External Lab: CBC (01/28/2015 7:15 PM PDT) + + + + + + | Component | Value | Ref Range | Performed | Pathologist | | | | | At | Signature | + + + + + + | WBC | 7.83Comment: Testing | 3.80 - 11.00 | EXTERNAL | | | | performed at [facility];[address] | K/uL | LAB | | | | [address];[place] | | | | | | [address] | | | | + + + + + + | Red Blood | 3.94 (L)Comment: Testing | 4.20 - 5.70 | EXTERNAL | | | Cells | performed at [facility];[address] | M/uL | LAB | | | Counted | [address];[place] | | | | | | [address] | | | | + + + + + + | Hemoglobin | 11.7 (L)Comment: Testing | 13.2 - 17.0 | EXTERNAL | | | | performed at [facility];[address] | g/dL | LAB | | | | [address];[place] | | | | | | [address] | | | | + + + + + + | Hematocrit, | 34.4 (L)Comment: Testing | 39.0 - 50.0 % | EXTERNAL | | | POC | performed at [facility];[address] | | LAB | | | | [address];[place] | | | | | | [address] | | | | + + + + + + | MCV | 87.4Comment: Testing | 80.0 - 100.0 fl | EXTERNAL | | | | performed at [facility];[address] | | LAB | | | | [address];[place] | | | | | | [address] | | | | + + + + + + | MCH | 29.6Comment: Testing | 27.0 - 34.0 pg | EXTERNAL | | | | performed at [facility];[address] | | LAB | | | | [address];[place] | | | | | | [address] | | | | + + + + + + | MCHC | 33.9Comment: Testing | 32.0 - 35.5 | EXTERNAL | | | | performed at [facility];[address] | g/dL | LAB | | | | [address];[place] | | | | | | [address] | | | | + + + + + + | RDW-CV | 38.1Comment: Testing | 37 - 53 fl | EXTERNAL | | | | performed at [facility];[address] | | LAB | | | | [address];[place] | | | | | | [address] | | | | + + + + + + | Platelet | 266Comment: Testing | 150 - 400 K/uL | EXTERNAL | | | Count | performed at [facility];[address] | | LAB | | | Plasma | [address];[place] | | | | | | [address] | | | | + + + + + + | MPV | 10.0Comment: Testing | fl | EXTERNAL | | | | performed at [facility];[address] | | LAB | | | | [address];[place] | | | | | | [address] | | | | + + + + + + | Differentia | AUTOMATEDComment: | | EXTERNAL | | | l Type | Testing performed at | | LAB | | | | [facility];[address];[place] [address] | | | | + + + + + + | % Segmented | 75.90Comment: Testing | % | EXTERNAL | | | | performed at [facility];[address] | | LAB | | | Neutrophils | [address];[place] | | | | | | [address] | | | | + + + + + + | % | 16.41Comment: Testing | % | EXTERNAL | | | Lymphocytes | performed at [facility];[address] | | LAB | | | | [address];[place] | | | | | | [address] | | | | + + + + + + | % Monocytes | 6.38Comment: Testing | % | EXTERNAL | | | | performed at [facility];[address] | | LAB | | | | [address];[place] | | | | | | [address] | | | | + + + + + + | % | 0.79Comment: Testing | % | EXTERNAL | | | Eosinophils | performed at [facility];[address] | | LAB | | | | [address];[place] | | | | | | [address] | | | | + + + + + + | % Basophils | 0.52Comment: Testing | % | EXTERNAL | | | | performed at [facility];[address] | | LAB | | | | [address];[place] | | | | | | [address] | | | | + + + + + + | Absolute | 5.94Comment: Testing | 1.90 - 7.40 | EXTERNAL | | | Segmented | performed at [facility];[address] | K/uL | LAB | | | Neutrophils | [address];[place] | | | | | | [address] | | | | + + + + + + | Absolute | 1.29Comment: Testing | 1.00 - 3.90 | EXTERNAL | | | Lymphocytes | performed at [facility];[address] | K/uL | LAB | | | | [address];[place] | | | | | | [address] | | | | + + + + + + | Absolute | 0.50Comment: Testing | 0.00 - 0.80 | EXTERNAL | | | Monocytes | performed at [facility];[address] | K/uL | LAB | | | | [address];[place] | | | | | | [address] | | | | + + + + + + | Absolute | 0.06Comment: Testing | 0.00 - 0.50 | EXTERNAL | | | Eosinophils | performed at [facility];[address] | K/uL | LAB | | | | [address];[place] | | | | | | [address] | | | | + + + + + + | Absolute | 0.04Comment: Testing | 0.00 - 0.10 | EXTERNAL | | | Basophils | performed at [facility];[address] | K/uL | LAB | | | | [address];[place] | | | | | | [address] | | | | + + + + + + + + | Specimen | + + | Blood specimen | | (specimen) | + + + +---------+ + + | Performing | Address | City/State/Zipcode | Phone Number | | Organization | | | | + +---------+ + + | EXTERNAL LAB | | | | + +---------+ + + TSH (01/28/2015 7:15 PM PDT) + + + + + + | Component | Value | Ref Range | Performed | Pathologist | | | | | At | Signature | + + + + + + | TSH | 0.54Comment: Testing | 0.45 - 5.10 | EXTERNAL | | | | performed at [facility];[address] | uIU/mL | LAB | | | | [address];[place], [place] | | | | | | [address] | | | | + + + + + + + + | Specimen | + + | Blood specimen | | (specimen) | + + + +---------+ + + | Performing | Address | City/State/Zipcode | Phone Number | | Organization | | | | + +---------+ + + | EXTERNAL LAB | | | | + +---------+ + + Phosphorus (01/28/2015 7:15 PM PDT) + + + + + + | Component | Value | Ref Range | Performed | Pathologist | | | | | At | Signature | + + + + + + | PHOSPHORUS | 4.6Comment: Testing | 2.3 - 4.8 mg/dL | EXTERNAL | | | | performed at [facility] | | LAB | | | | [address];[place] | | | | | | [address] | | | | + + + + + + + + | Specimen | + + | Blood specimen | | (specimen) | + + + +---------+ + + | Performing | Address | City/State/Zipcode | Phone Number | | Organization | | | | + +---------+ + + | EXTERNAL LAB | | | | + +---------+ + + Magnesium (01/28/2015 7:15 PM PDT) + + + + + + | Component | Value | Ref Range | Performed | Pathologist | | | | | At | Signature | + + + + + + | Magnesium | 2.2Comment: Testing | 1.7 - 2.4 mg/dL | EXTERNAL | | | | performed at [facility];[address] | | LAB | | | | [address];[place], [place] | | | | | | [address] | | | | + + + + + + + + | Specimen | + + | Blood specimen | | (specimen) | + + + +---------+ + + | Performing | Address | City/State/Zipcode | Phone Number | | Organization | | | | + +---------+ + + | EXTERNAL LAB | | | | + +---------+ + + CK Total (01/28/2015 7:15 PM PDT) + + + + + + | Component | Value | Ref Range | Performed | Pathologist | | | | | At | Signature | + + + + + + | CK, Total | 85Comment: Testing | 55 - 400 U/L | EXTERNAL | | | | performed at [facility];[address] | | LAB | | | | [address];[place] | | | | | | [address] | | | | + + + + + + + + | Specimen | + + | Blood specimen | | (specimen) | + + + +---------+ + + | Performing | Address | City/State/Zipcode | Phone Number | | Organization | | | | + +---------+ + + | EXTERNAL LAB | | | | + +---------+ + + Comprehensive Metabolic Panel (01/28/2015 7:15 PM PDT) + + + + + + | Component | Value | Ref Range | Performed | Pathologist | | | | | At | Signature | + + + + + + | Na | 138Comment: Testing | 135 - 143 | EXTERNAL | | | | performed at [facility];[address] | mmol/L | LAB | | | | [address];[place] | | | | | | [address] | | | | + + + + + + | K | 3.7Comment: Testing | 3.5 - 4.9 | EXTERNAL | | | | performed at [facility];[address] | mmol/L | LAB | | | | [address];[place] | | | | | | [address] | | | | + + + + + + | Cl | 106Comment: Testing | 99 - 109 mmol/L | EXTERNAL | | | | performed at [facility];[address] | | LAB | | | | [address];[place] | | | | | | [address] | | | | + + + + + + | CO2 | 21 (L)Comment: Testing | 23 - 32 mmol/L | EXTERNAL | | | | performed at [facility];[address] | | LAB | | | | [address];[place] | | | | | | [address] | | | | + + + + + + | Anion Gap | 15Comment: Testing | 5 - 20 mmol/L | EXTERNAL | | | | performed at [facility];[address] | | LAB | | | | [address];[place] | | | | | | [address] | | | | + + + + + + | Glucose, | 96Comment: Testing | 65 - 99 mg/dL | EXTERNAL | | | Fasting | performed at [facility];[address] | | LAB | | | | [address];[place] | | | | | | [address] | | | | + + + + + + | BUN | 72 (H)Comment: Testing | 8 - 25 mg/dL | EXTERNAL | | | | performed at [facility];[address] | | LAB | | | | [address];[place] | | | | | | [address] | | | | + + + + + + | Creatinine | 3.4 (H)Comment: Testing | 0.70 - 1.30 | EXTERNAL | | | | performed at [facility];[address] | mg/dL | LAB | | | | [address];[place] | | | | | | [address] | | | | + + + + + + | BUN/Creatin | 21Comment: Testing | | EXTERNAL | | | ine Ratio | performed at [facility];[address] | | LAB | | | | [address];[place] | | | | | | [address] | | | | + + + + + + | Calcium | 8.1 (L)Comment: Testing | 8.5 - 10.5 | EXTERNAL | | | | performed at [facility];[address] | mg/dL | LAB | | | | [address];[place] | | | | | | [address] | | | | + + + + + + | Protein, | 6.5Comment: Testing | 6.3 - 8.2 g/dL | EXTERNAL | | | Total | performed at [facility];[address] | | LAB | | | | [address];[place] | | | | | | [address] | | | | + + + + + + | Albumin | 3.4 (L)Comment: Testing | 3.6 - 5.0 g/dL | EXTERNAL | | | | performed at [facility];[address] | | LAB | | | | [address];[place] | | | | | | [address] | | | | + + + + + + | Globulin | 3.1Comment: Testing | 1.3 - 4.9 g/dL | EXTERNAL | | | | performed at [facility];[address] | | LAB | | | | [address];[place] | | | | | | [address] | | | | + + + + + + | A/G Ratio | 1.1Comment: Testing | 1.0 - 2.4 | EXTERNAL | | | | performed at [facility];[address] | | LAB | | | | [address];[place] | | | | | | [address] | | | | + + + + + + | Bilirubin | 0.7Comment: Testing | 0.1 - 1.5 mg/dL | EXTERNAL | | | Total | performed at [facility];[address] | | LAB | | | | [address];[place] | | | | | | [address] | | | | + + + + + + | ALP, | 54Comment: Testing | 35 - 115 U/L | EXTERNAL | | | External | performed at [facility];[address] | | LAB | | | | [address];[place] | | | | | | [address] | | | | + + + + + + | AST | 30Comment: Testing | 10 - 45 U/L | EXTERNAL | | | | performed at [facility];[address] | | LAB | | | | [address];[place] | | | | | | [address] | | | | + + + + + + | ALT | 71 (H)Comment: Testing | 10 - 65 U/L | EXTERNAL | | | | performed at [facility];[address] | | LAB | | | | [facility] | | | | | | [address] | | | | + + + + + + | Estimated | 22 (L)Comment: GFR <60: | mL/min/1.73m2 | EXTERNAL | | | GFR | CHRONIC KIDNEY DISEASE, | | LAB | | | | IF FOUND OVER A 3 MONTH | | | | | | PERIOD.GFR <15: KIDNEY | | | | | | FAILURE.FOR | | | | | | AMERICANS, MULTIPLY THE | | | | | | CALCULATED GFR BY | | | | | | 1.210.Testing performed | | | | | | at [facility];[address];[place] [address] | | | | + + + [...] + documented in this encounter Visit Diagnoses + + | Diagnosis | + + | Acute renal failure, unspecified acute renal failure type (HCC) | + + | Non-intractable vomiting with nausea, vomiting of unspecified type | + + documented in this encounter
--- OUTSIDE RECORDS SUMMARY | ~2019-09-09 | XMS | Clinical Summary ---
Demographics + + + | Address | [address] | | | [place] [address] | + + + | Home Phone | | + + + | Preferred Language | Unknown | + + + | Marital Status | Single | + + + | Buddhism Affiliation | Unknown | + + + | Race | Unknown | + + + | Ethnic Group | Unknown | + + + Author + + + | Author | [facility] | | | and [place] | + + + | Organization | [facility] | | | and [place] | [...] [place] | | | | | [address] | | + + + + + Care Team Providers + +------+ + | Care Skid [address] Man Name | Role | Phone | + [...]
--- OUTSIDE RECORDS SUMMARY | ~2019-09-09 | XMS | Encounter Summary ---
Demographics + + + | Address | [address] | | | [place] [address] | + + + | Home Phone | | + + + | Preferred Language | Unknown | + + + | Marital Status | Single | + + + | Confucianist Affiliation | Unknown | + + + | Race | Unknown | + + + | Ethnic Group | Unknown | + + + Author + + + | Author | [facility] | | | and [place] | + + + | Organization | [facility] | | | and [place] [...] [place] | | | | | [address] | | + + + + + Care Team Providers + +------+ + | Care Educational Manager Name | Role | Phone | + +------+ + | Kip Damon MD | PCP | | + +------+ + Encounter Details +--------+ + + + + | Date | Type | Department | Care Team | Description | +--------+ + + + + | 05/21/ | Orders Only | [facility] | Compa Sifuentes MD | | | 2015 | | NEPHROLOGY [place] | [address] [place] | | | | | [address] [place] | [address] [place], [place] | | | | | [address] [place], [place] | [address] | | | | | [phone] | | | | | | [phone] | | | +--------+ + + + [...]
--- OUTSIDE RECORDS SUMMARY | ~2019-09-09 | XMS | Clinical Summary ---
Demographics + + + | Address | [address] | | | [place] [address] | + + + | Home Phone | | + + + | Preferred Language | Unknown | + + + | Marital Status | Single | + + + | Temple Affiliation | Unknown | + + + | Race | Unknown | + + + | Ethnic Group | Unknown | + + + Author + + + | Author | [facility] (Historical as of | | | 12-10-18) | + + + | Organization | [facility] (Historical as of | | | 12-10-18) [...] [place] | | | | | [address] | | + + + + + Care Team Providers + +------+ + | Care District Administrator Name | Role | Phone | [...] +------+-------+ + | MEDICAID | [place] | [id number] | | | [address] | | | [place] | | | | [place] | | | [place] | | | | [phone] | | | AUXILIARY EQUIPMENT OPERATOR | | | | | + +--------+ [...] | | | [place] | | | [phone] | [phone] | + +--------+ +--------+ + +
--- OUTSIDE RECORDS SUMMARY | ~2019-09-09 | XMS | Encounter Summary ---
Demographics + + + | Address | [address] | | | [place] [address] | + + + | Home Phone | | + + + | Preferred Language | Unknown | + + + | Marital Status | Single | + + + | Anglican Affiliation | Unknown | + + + | Race | Unknown | + + + | Ethnic Group | Unknown | + + + Author + + + | Author | [facility] | | | and [place] | + + + | Organization | [facility] | | | and [place] [...] [place], [place] | | | | | [address] | | + + + + + Care Team Providers + +------+ + | Care Demo Event Specialist Name | Role | Phone | + +------+ + PCP | Unavailable | + +------+ + Encounter Details +--------+ + + + + | Date | Type | Department | Care Team | Description | +--------+ + + + + | 01/28/ | Hospital | [facility] | Catracho Zavala | Acute renal failure, | | 2014 - | Encounter | MEDICAL CENTER | MD Chance [address] | unspecified acute | | | | CLINICAL DECISION | Ernie Baltazar | renal failure type | | 01/31/ | | [address] | [place] [address] | ([facility]); | | 2015 | | [place], [place] | [phone] | Non-intractable | | | | [phone] | | vomiting with | | | | [phone] | | nausea, vomiting of | | [...] by Luis Miguel Reyes MD at 01/31/15 7672 Author: Luis Miguel Reyes MD Service: Hospitalist Author Type: Physician Filed: 02/17/15 8796 Date of Service: 01/31/151149 Status: Addendum Lead Project Manager: Luis Miguel Reyes MD (Physician) Related Notes: Original Note by Luis Miguel Reyes MD (Physician) filed at 02/01/15 5837 [facility] Service: Hospitalist Discharge Summary Date of Admission: [...] Patient is quite deconditioned. [facility] [...] hours. No results for input(s): PHART, PO2ART, ULP4WOD, W5DQEAAB, BEART in the last 168 hours. No results for input(s): APTT, INR, PTT in the last 168 hours. Recent Labs Lab 01/28/151914 TSH 0.54 Recent Labs Lab 01/28/151914 CKTOTAL 85 Radiology No results found. Disposition: prison Condition: Good Code Status: Full Code No discharge procedures on file. Follow up: Kip Dotson MD [address] [facility] [address] Medication List CONTINUE taking these medications amphetamine-dextroamphetamine [...] 01/31/151516 Date of Service: 01/31/151512 Status: Signed Lead Project Manager: Wm Sánchez RN (Registered Nurse) Pt discharged to [facility] in [place], [place]. Discharge paperwork previously faxed. Pt denied pain. Belongings with pt. No concerns. Pt wheeled out by escort. CLEM Sánchez RN onver elsy Transaction, Provider Unknown - 01/31/2015 2:53 PM PDT Nurse Progress Note by Wm Sánchez RN at 01/31/15 970 Author: Wm Sánchez RN Service: (none) Author Type: Registered Nurse Filed: 01/31/15 1458 Date of Service: 01/31/151452 Status: Signed Lead Project Manager: Wm Sánchez RN (Registered Nurse) Report called to SRUTHI Vanessa at [facility]. WM Sánchez RN onver elsy Transaction, Provider Unknown - 01/31/2015 2:10 PM PDT Therapy Progress Note by Tona Alston PTA at 01/31/15 1410 Author: Tona Alston PTA Service: (none) Author Type: Director Of Pediatric Rehabilitation Filed: 01/31/15 1429 Date of Service: 01/31/151409 Status: Signed Lead Project Manager: Tona Alston PTA (Director Of Pediatric Rehabilitation) 01/31/15 1410 PT Last Visit PT Received On 01/31/15 Reason for Treatment Other (comment) (ARF, s/p recent L TKA (01/15/15)) Requires PT Follow Up Yes Follow up PT Only? No Assistance Required 1 person Director Of Teacher Education Needed No Other Comments Comments Pt supine [...] Author: RICKEY Salazar Service: (none) Author Type: Windows Systems Admin Filed: 01/31/15 2010 Date of Service: 01/31/15 1301 Status: Signed Lead Project Manager: RICKEY Salazar (Windows Systems Admin) Pt being dc 'd today 01/31/2015 to [facility] in [place] for PT/OT/SN Evaluatio n Treatment. Will be transported by Medicaid Transportation in [place] [phone]. onver elsy Transaction, Provider Unknown - 01/30/2015 1:50 PM PDT Therapy Progress Note by Enedelia Jamison PT at 01/30/15 1350 Author: Enedelia Jamison PT Service: (none) Author Type: Physical Therapist Filed: 01/30/15 7670 Date of Service: 01/30/15 1350 Status: Addendum Lead Project Manager: Enedelia Jamison PT (Physical Therapist) Related Notes: Original Note by Enedelia Jamison PT (Physical Therapist) filed at 01/30/15 3507 01/30/15 1350 PT Last Visit PT Received On 01/30/15 Reason for Treatment Other (comment) (ARF, s/p recent L TKA (01/15/15)) Requires PT Follow Up Yes Follow up PT Only? No Focus for Next Treatment Stair Training Assistance Required 1 person Director Of Teacher Education Needed No Other Comments Comments Pt found [...] and chart review, pt to d/c to [place]) Equipment Recommended Walker front wheeled Barriers to Discharge Physical Deficits Impacting Functional Patrick PT Ready for Discharge Yes onver elsy Transaction, Provider Unknown - 01/30/2015 12:30 PM PDT Progress Notes by Cherie Hirsch RN at 01/30/15 1230 Author: Cherie Hirsch RN Service: (none) Author Type: Registered Nurse Filed: 01/30/15 1241 Date of Service: 01/30/15 1230 Status: Addendum Lead Project Manager: Cherie Hirsch RN (Registered Nurse) Related Notes: [...] Date of Service: 01/30/15 1204 Status: Addendum Lead Project Manager: Cherie Hirsch RN (Registered Nurse) Related Notes: [...] 1128 Date of Service: 01/30/158 Status: Signed Lead Project Manager: Cherie Hirsch RN (Registered Nurse) Am meds reviewd With Pt. Adriana onver elsy Transaction, Provider Unknown - 01/30/2015 10:14 AM PDT Case Management by Jenifer Thompson RN at 01/30/15 1014 Author: Jenifer Thompson RN Service: (none) Author Type: Registered Nurse Filed: 01/30/15 1154 Date of Service: 01/30/15 1014 Status: Addendum Lead Project Manager: Jenifer Thompson RN (Registered Nurse) Related Notes: Original Note by Jenifer Thompson RN (Registered Nurse) filed at 1 1016 Received phone call from [facility] stating they are accepting pt pending insurance authorization. Expect auth not to be available until tomorrow. SNF paperwork signed and on chart. onver elsy Transaction, Provider Unknown - 01/30/2015 7:48 AM PDT Case Management by Jenifer Thompson RN at 01/30/15 0748 Author: Jenifer Thompson RN Service: (none) Author Type: Registered Nurse Filed: 01/30/15 0749 Date of Service: 01/30/15 0748 Status: Signed Lead Project Manager: Jenifer Thompson RN (Registered Nurse) [facility], [facility], and [facility] denying due to [place] Medicaid Coordinated Care. onver elsy Transaction, Provider Unknown - 01/29/2015 10:23 PM PDT Nurse Progress Note by Elisa Alonzo RN at 102222 Author: Elisa Alonzo RN Service: (none) Author Type: Registered Nurse Filed: 01/29/152223 Date of Service: 01/29/152222 Status: Signed Lead Project Manager: Elisa Alonzo RN (Registered Nurse) Pt resting [...] 1336 Date of Service: 01/29/150 Status: Signed Lead Project Manager: Luis Miguel Reyes MD (Physician) Related Notes: Original Note by Luis Miguel Reyes MD (Physician) filed at 01/29/15 1523 [facility]: Hospitalist Progress Note Hospital Day: LOS: [...] hours. No results for input(s): PHART, PO2ART, PVH1JFO, K1OBBOVB, BEART in the last 168 hours. No [...] Date of Service: 01/29/15 1450 Status: Addendum Lead Project Manager: Sophy Wheeler RN (Registered Nurse) Related Notes: Original Note by Sophy Wheeler RN (Registered Nurse) filed at 01/29/[address] conversation with patient that referrals be sent to all local and out of town S NF's. Patient voiced agreement. 1515 [place] denied since he has [place] onver elsy Transaction, Provider Unknown - 01/29/2015 1:50 PM PDT Therapy Progress Note by Torie Matthews PT at 01/29/15 1350 Author: Torie Matthews PT Service: (none) Author Type: Physical Therapist Filed: 01/29/15 1506 Date of Service: 01/29/15 1350 Status: Addendum Lead Project Manager: Torie Matthews PT (Physical Therapist) Related Notes: [...] 01/29/15 Assistance Required 1 person Director Of Teacher Education Needed No Home Environment Type of Home Home one story Home Exterior Layout 4-6 steps (loose railing) Home Interior Layout Lives on main level with bedroom/bathroom Bathroom Shower/Tub Tub/shower unit Bathroom Toilet Standard Bathroom Equipment Hand-held shower head;Shower chair (suction bar in tub) Bathroom Accessibility Not accessible Home Equipment Walker front wheeled;Crutches-axillary Prior Function Level of Patrick Modified independent with functional mobility;Assist with ADLs;Assist [...] 01/29/15 Assistance Required 1 person Director Of Teacher Education Needed No Other Comments Comments 39 yr old male admitted with renal insufficiency. Pt. underwent TKR on 01/15/15 and still has nay in situ. Pt. did have home health PT come to see him but he stated that t hey were going to set up inpatient rehab. Spoke with case manager specialist about this. Feel pt. would be able [...] 1308 Date of Service: 01/29/151304 Status: Signed Lead Project Manager: Sophy Wheeler RN (Registered Nurse) 01/29/15 1255 [...] Medicaid Coverage concerns: none Medication coverage/concerns: none [facility] Bedside Delivery: no Community resources utilized / needed: none Assistance in transportation: "states that he has no way home since he was brought in by am bulance". Patient eligible for [place] [employer] w/ Transportation Benefit. Call ahead as soon as possible with discharge date. [phone] Identification of any specific education / training: [...] 01/29/151 Date of Service: 01/29/151 Status: Signed Lead Project Manager: Joy Pan RPH (Pharmacist) Clinical Pharmacy Note - Renal Dose Adjustment Endy Frost 39 y.o. male Ht Readings from Last 1 Encounters: 01/28/15 1.88 m (6' 2") Wt Readings from Last 1 Encounters: 01/28/15 169.328 kg (373 lb 4.8 oz) CREATININE Date Value Ref Range Status 01/28/2015 3.4* 0.70 - 1.30 mg/dL Final Comment: Testing performed at [facility];[address] [place] [address];[place] [address] CREATININE: 3.4 mg/dL ABNORMAL (01/28/15 1915) Estimated [...] EXTERNAL | | | | performed at [facility], [address] | K/uL | LAB | | | | [address], | | | | | | [place] [address] | | | | + + + + + + | Red Blood | 3.79 (L)Comment: Testing | 4.20 - 5.70 | EXTERNAL | | | Cells | performed at [facility], [address] | M/uL | LAB | | | Counted | [address], | | | | | | [place] [address] | | | | + + + + + + | Hemoglobin | 11.2 (L)Comment: Testing | 13.2 - 17.0 | EXTERNAL | | | | performed at [facility], [address] | g/dL | LAB | | | | [address], | | | | | | [place] [address] | | | | + + + + + + | Hematocrit, | 33.6 (L)Comment: Testing | 39.0 - 50.0 % | EXTERNAL | | | POC | performed at [facility], [address] | | LAB | | | | [address], | | | | | | [place] [address] | | | | + + + + + + | MCV | 88.6Comment: Testing | 80.0 - 100.0 fl | EXTERNAL | | | | performed at [facility], [address] | | LAB | | | | [address], | | | | | | [place] [address] | | | | + + + + + + | MCH | 29.6Comment: Testing | 27.0 - 34.0 pg | EXTERNAL | | | | performed at [facility], [address] | | LAB | | | | [address], | | | | | | [place] [address] | | | | + + + + + + | MCHC | 33.4Comment: Testing | 32.0 - 35.5 | EXTERNAL | | | | performed at [facility], [address] | g/dL | LAB | | | | [address], | | | | | | [place] [address] | | | | + + + + + + | RDW-CV | 38.1Comment: Testing | 37 - 53 fl | EXTERNAL | | | | performed at [facility], [address] | | LAB | | | | [address], | | | | | | [place] [address] | | | | + + + + + + | Platelet | 180Comment: Testing | 150 - 400 K/uL | EXTERNAL | | | Count | performed at [facility], [address] | | LAB | | | Plasma | [address], | | | | | | [place] [address] | | | | + + + + + + | MPV | 11.2Comment: Testing | fl | EXTERNAL | | | | performed at [facility], [address] | | LAB | | | | [address], | | | | | | [place] [address] | | | | + + + + + + | Differentia | AUTOMATEDComment: | | EXTERNAL | | | l Type | Testing performed at | | LAB | | | | [facility], [address] | | | | | | [place] | | | | | | [address] | | | | + + + + + + | % Segmented | 70.44Comment: Testing | % | EXTERNAL | | | | performed at [facility], [address] | | LAB | | | Neutrophils | [address], | | | | | | [place] [address] | | | | + + + + + + | % | 19.69Comment: Testing | % | EXTERNAL | | | Lymphocytes | performed at [facility], [address] | | LAB | | | | [address], | | | | | | [place] [address] | | | | + + + + + + | % Monocytes | 8.26Comment: Testing | % | EXTERNAL | | | | performed at [facility], [address] | | LAB | | | | [address], | | | | | | [place] [address] | | | | + + + + + + | % | 1.29Comment: Testing | % | EXTERNAL | | | Eosinophils | performed at [facility], [address] | | LAB | | | | [address], | | | | | | [place] [address] | | | | + + + + + + | % Basophils | 0.32Comment: Testing | % | EXTERNAL | | | | performed at [facility], [address] | | LAB | | | | [address], | | | | | | [place] [address] | | | | + + + + + + | Absolute | 3.96Comment: Testing | 1.90 - 7.40 | EXTERNAL | | | Segmented | performed at [facility], [address] | K/uL | LAB | | | Neutrophils | [address], | | | | | | [place] [address] | | | | + + + + + + | Absolute | 1.11Comment: Testing | 1.00 - 3.90 | EXTERNAL | | | Lymphocytes | performed at [facility], [address] | K/uL | LAB | | | | [address], | | | | | | [place] [address] | | | | + + + + + + | Absolute | 0.46Comment: Testing | 0.00 - 0.80 | EXTERNAL | | | Monocytes | performed at [facility], [address] | K/uL | LAB | | | | [address], | | | | | | [place] [address] | | | | + + + + + + | Absolute | 0.07Comment: Testing | 0.00 - 0.50 | EXTERNAL | | | Eosinophils | performed at [facility], [address] | K/uL | LAB | | | | [address], | | | | | | [place] [address] | | | | + + + + + + | Absolute | 0.02Comment: Testing | 0.00 - 0.10 | EXTERNAL | | | Basophils | performed at [facility], [address] | K/uL | LAB | | | | [address], | | | | | | [place] [address] | | | | + + + [...] EXTERNAL | | | | performed at [facility], [address] | | LAB | | | | [address], | | | | | | [place] [address] | | | | + + + [...] | | | | | [place] [address] | | | | + + + + + + | K | 4.0Comment: Testing | 3.5 - 4.9 | EXTERNAL | | | | performed at [facility], [address] | mmol/L | LAB | | | | [address], | | | | | | [place] [address] | | | | + + + + + + | Cl | 105Comment: Testing | 99 - 109 mmol/L | EXTERNAL | | | | performed at [facility], [address] | | LAB | | | [address], | | | | | | [place] [address] | | | | + + + + + + | CO2 | 24Comment: Testing | 23 - 32 mmol/L | EXTERNAL | | | | performed at [facility], [address] | | LAB | | | | [address], | | | | | | [place] [address] | | | | + + + + + + | Anion Gap | 9Comment: Testing | 5 - 20 mmol/L | EXTERNAL | | | | performed at [facility], [address] | | LAB | | | | [address], | | | | | | [place] [address] | | | | + + + + + + | Glucose, | 108 (H)Comment: Testing | 65 - 99 mg/dL | EXTERNAL | | | Fasting | performed at [facility], [address] | | LAB | | | | [address], | | | | | | [place] [address] | | | | + + + + + + | BUN | 21Comment: Testing | 8 - 25 mg/dL | EXTERNAL | | | | performed at [facility], [address] | | LAB | | | | [address], | | | | | | [place] [address] | | | | + + + + + + | Creatinine | 1.12Comment: Testing | 0.70 - 1.30 | EXTERNAL | | | | performed at [facility], [address] | mg/dL | LAB | | | | [address], | | | | | | [place] [address] | | | | + + + + + + | BUN/Creatin | 19Comment: Testing | | EXTERNAL | | | ine Ratio | performed at [facility], [address] | | LAB | | | | [address], | | | | | | [place] [address] | | | | + + + + + + | Calcium | 9.5Comment: Testing | 8.5 - 10.5 | EXTERNAL | | | | performed at [facility], [address] | mg/dL | LAB | | | | [address], | | | | | | [place] [address] | | | | + + + + + + | Protein, | 6.6Comment: Testing | 6.3 - 8.2 g/dL | EXTERNAL | | | Total | performed at [facility], [address] | | LAB | | | | [address], | | | | | | [place] [address] | | | | + + + + + + | Albumin | 3.9Comment: Testing | 3.6 - 5.0 g/dL | EXTERNAL | | | | performed at [facility], [address] | | LAB | | | | [address], | | | | | | [place] [address] | | | | + + + + + + | Globulin | 2.7Comment: Testing | 1.3 - 4.9 g/dL | EXTERNAL | | | | performed at [facility], [address] | | LAB | | | | [address], | | | | | | [place] [address] | | | | + + + + + + | A/G Ratio | 1.4Comment: Testing | 1.0 - 2.4 | EXTERNAL | | | | performed at [facility], [address] | | LAB | | | | [address], | | | | | | [place] [address] | | | | + + + + + + | Bilirubin | 0.6Comment: Testing | 0.1 - 1.5 mg/dL | EXTERNAL | | | Total | performed at [facility], [address] | | LAB | | | | [address], | | | | | | [place] [address] | | | | + + + + + + | ALP, | 48Comment: Testing | 35 - 115 U/L | EXTERNAL | | | External | performed at [facility], [address] | | LAB | | | | [address], | | | | | | [place] [address] | | | | + + + + + + | AST | 26Comment: Testing | 10 - 45 U/L | EXTERNAL | | | | performed at [facility], [address] | | LAB | | | | [address], | | | | | | [place] [address] | | | | + + + + + + | ALT | 45Comment: Testing | 10 - 65 U/L | EXTERNAL | | | | performed at [facility], [address] | | LAB | | | | [address], | | | | | | [place] [address] | | | | + + + [...] | | | | | | at [facility], [address] | | | | | | [address], | | | | | | [place] [address] | | | | + + + [...] | | | | | [place] [address] | | | | + + + + + + | Red Blood | 3.87 (L)Comment: Testing | 4.20 - 5.70 | EXTERNAL | | | Cells | performed at [facility], [address] | M/uL | LAB | | | Counted | [address], | | | | | | [place] [address] | | | | + + + + + + | Hemoglobin | 11.5 (L)Comment: Testing | 13.2 - 17.0 | EXTERNAL | | | | performed at [facility], [address] | g/dL | LAB | | | | [address], | | | | | | [place] [address] | | | | + + + + + + | Hematocrit, | 34.1 (L)Comment: Testing | 39.0 - 50.0 % | EXTERNAL | | | POC | performed at [facility], [address] | | LAB | | | | [address], | | | | | | [place] [address] | | | | + + + + + + | MCV | 88.1Comment: Testing | 80.0 - 100.0 fl | EXTERNAL | | | | performed at [facility], [address] | | LAB | | | | [address], | | | | | | [place] [address] | | | | + + + + + + | MCH | 29.6Comment: Testing | 27.0 - 34.0 pg | EXTERNAL | | | | performed at [facility], [address] | | LAB | | | | [address], | | | | | | [place] [address] | | | | + + + + + + | MCHC | 33.6Comment: Testing | 32.0 - 35.5 | EXTERNAL | | | | performed at [facility], [address] | g/dL | LAB | | | | [address], | | | | | | [place] [address] | | | | + + + + + + | RDW-CV | 39.4Comment: Testing | 37 - 53 fl | EXTERNAL | | | | performed at [facility], [address] | | LAB | | | | [address], | | | | | | [place] [address] | | | | + + + + + + | Platelet | 194Comment: Testing | 150 - 400 K/uL | EXTERNAL | | | Count | performed at [facility], [address] | | LAB | | | Plasma | [address], | | | | | | [place] [address] | | | | + + + + + + | MPV | 10.8Comment: Testing | fl | EXTERNAL | | | | performed at [facility], [address] | | LAB | | | | [address], | | | | | | [place] [address] | | | | + + + + + + | Differentia | AUTOMATEDComment: | | EXTERNAL | | | l Type | Testing performed at | | LAB | | | | [facility], [address] | | | | | | [place] | | | | | | [address] | | | | + + + + + + | % Segmented | 71.78Comment: Testing | % | EXTERNAL | | | | performed at [facility], [address] | | LAB | | | Neutrophils | [address], | | | | | | [place] [address] | | | | + + + + + + | % | 19.78Comment: Testing | % | EXTERNAL | | | Lymphocytes | performed at [facility], [address] | | LAB | | | | [address], | | | | | | [place] [address] | | | | + + + + + + | % Monocytes | 6.25Comment: Testing | % | EXTERNAL | | | | performed at [facility], [address] | | LAB | | | | [address], | | | | | | [place] [address] | | | | + + + + + + | % | 1.55Comment: Testing | % | EXTERNAL | | | Eosinophils | performed at [facility], [address] | | LAB | | | | [address], | | | | | | [place] [address] | | | | + + + + + + | % Basophils | 0.64Comment: Testing | % | EXTERNAL | | | | performed at [facility], [address] | | LAB | | | | [address], | | | | | | [place] [address] | | | | + + + + + + | Absolute | 4.44Comment: Testing | 1.90 - 7.40 | EXTERNAL | | | Segmented | performed at [facility], [address] | K/uL | LAB | | | Neutrophils | [address], | | | | | | [place] [address] | | | | + + + + + + | Absolute | 1.22Comment: Testing | 1.00 - 3.90 | EXTERNAL | | | Lymphocytes | performed at [facility], [address] | K/uL | LAB | | | | [address], | | | | | | [place] [address] | | | | + + + + + + | Absolute | 0.39Comment: Testing | 0.00 - 0.80 | EXTERNAL | | | Monocytes | performed at [facility], [address] | K/uL | LAB | | | | [address], | | | | | | [place] [address] | | | | + + + + + + | Absolute | 0.10Comment: Testing | 0.00 - 0.50 | EXTERNAL | | | Eosinophils | performed at [facility], [address] | K/uL | LAB | | | | [address], | | | | | | [place] [address] | | | | + + + + + + | Absolute | 0.04Comment: Testing | 0.00 - 0.10 | EXTERNAL | | | Basophils | performed at [facility], [address] | K/uL | LAB | | | | [address], | | | | | | [place] [address] | | | | + + + [...] EXTERNAL | | | | performed at [facility], [address] | | LAB | | | | [address], | | | | | | [place] [address] | | | | + + + [...] | | | | | [place] [address] | | | | + + + + + + | K | 4.1Comment: Testing | 3.5 - 4.9 | EXTERNAL | | | | performed at [facility], [address] | mmol/L | LAB | | | | [address], | | | | | | [place] [address] | | | | + + + + + + | Cl | 104Comment: Testing | 99 - 109 mmol/L | EXTERNAL | | | | performed at [facility], [address] | | LAB | | | | [address], | | | | | | [place] [address] | | | | + + + + + + | CO2 | 23Comment: Testing | 23 - 32 mmol/L | EXTERNAL | | | | performed at [facility], [address] | | LAB | | | | [address], | | | | | | [place] [address] | | | | + + + + + + | Anion Gap | 10Comment: Testing | 5 - 20 mmol/L | EXTERNAL | | | | performed at [facility], [address] | | LAB | | | | [address], | | | | | | [place] [address] | | | | + + + + + + | Glucose, | 103 (H)Comment: Testing | 65 - 99 mg/dL | EXTERNAL | | | Fasting | performed at [facility], [address] | | LAB | | | | [address], | | | | | | [place] [address] | | | | + + + + + + | BUN | 37 (H)Comment: Testing | 8 - 25 mg/dL | EXTERNAL | | | | performed at [facility], [address] | | LAB | | | | [address], | | | | | | [place] [address] | | | | + + + + + + | Creatinine | 1.37 (H)Comment: Testing | 0.70 - 1.30 | EXTERNAL | | | | performed at [facility], [address] | mg/dL | LAB | | | | [address], | | | | | | [place] [address] | | | | + + + + + + | BUN/Creatin | 27Comment: Testing | | EXTERNAL | | | ine Ratio | performed at [facility], [address] | | LAB | | | | [address], | | | | | | [place] [address] | | | | + + + + + + | Calcium | 9.7Comment: Testing | 8.5 - 10.5 | EXTERNAL | | | | performed at [facility], [address] | mg/dL | LAB | | | | [address], | | | | | | [place] [address] | | | | + + + + + + | Protein, | 6.4Comment: Testing | 6.3 - 8.2 g/dL | EXTERNAL | | | Total | performed at [facility], [address] | | LAB | | | [address], | | | | | | [place] [address] | | | | + + + + + + | Albumin | 3.9Comment: Testing | 3.6 - 5.0 g/dL | EXTERNAL | | | | performed at [facility], [address] | | LAB | | | | [address], | | | | | | [place] [address] | | | | + + + + + + | Globulin | 2.5Comment: Testing | 1.3 - 4.9 g/dL | EXTERNAL | | | | performed at [facility], [address] | | LAB | | | | [address], | | | | | | [place] [address] | | | | + + + + + + | A/G Ratio | 1.6Comment: Testing | 1.0 - 2.4 | EXTERNAL | | | | performed at [facility], [address] | | LAB | | | | [address], | | | | | | [place] [address] | | | | + + + + + + | Bilirubin | 0.7Comment: Testing | 0.1 - 1.5 mg/dL | EXTERNAL | | | Total | performed at [facility], [address] | | LAB | | | | [address], | | | | | | [place] [address] | | | | + + + + + + | ALP, | 47Comment: Testing | 35 - 115 U/L | EXTERNAL | | | External | performed at [facility], [address] | | LAB | | | | [address], | | | | | | [place] [address] | | | | + + + + + + | AST | 28Comment: Testing | 10 - 45 U/L | EXTERNAL | | | | performed at [facility], [address] | | LAB | | | | [address], | | | | | | [place] [address] | | | | + + + + + + | ALT | 51Comment: Testing | 10 - 65 U/L | EXTERNAL | | | | performed at [facility], [address] | | LAB | | | | [address], | | | | | | [place] [address] | | | | + + + [...] | | | | | [place] [address] | | | | + + + [...] | | | | | [place] [address] | | | | + + + + + + | Red Blood | 3.65 (L)Comment: Testing | 4.20 - 5.70 | EXTERNAL | | | Cells | performed at [facility], [address] | M/uL | LAB | | | Counted | [address], | | | | | | [place] [address] | | | | + + + + + + | Hemoglobin | 10.9 (L)Comment: Testing | 13.2 - 17.0 | EXTERNAL | | | | performed at [facility], [address] | g/dL | LAB | | | | [address], | | | | | | [place] [address] | | | | + + + + + + | Hematocrit, | 32.7 (L)Comment: Testing | 39.0 - 50.0 % | EXTERNAL | | | POC | performed at [facility], [address] | | LAB | | | | [address], | | | | | | [place] [address] | | | | + + + + + + | MCV | 89.6Comment: Testing | 80.0 - 100.0 fl | EXTERNAL | | | | performed at [facility], [address] | | LAB | | | | [address], | | | | | | [place] [address] | | | | + + + + + + | MCH | 29.7Comment: Testing | 27.0 - 34.0 pg | EXTERNAL | | | | performed at [facility], [address] | | LAB | | | | [address], | | | | | | [place] [address] | | | | + + + + + + | MCHC | 33.2Comment: Testing | 32.0 - 35.5 | EXTERNAL | | | | performed at [facility], [address] | g/dL | LAB | | | | [address], | | | | | | [place] [address] | | | | + + + + + + | RDW-CV | 38.1Comment: Testing | 37 - 53 fl | EXTERNAL | | | | performed at [facility], [address] | | LAB | | | | [address], | | | | | | [place] [address] | | | | + + + + + + | Platelet | 226Comment: Testing | 150 - 400 K/uL | EXTERNAL | | | Count | performed at [facility], [address] | | LAB | | | Plasma | [address], | | | | | | [place] [address] | | | | + + + + + + | MPV | 11.1Comment: Testing | fl | EXTERNAL | | | | performed at [facility], [address] | | LAB | | | | [address], | | | | | | [place] [address] | | | | + + + + + + | Differentia | AUTOMATEDComment: | | EXTERNAL | | | l Type | Testing performed at | | LAB | | | | [facility], [address] | | | | | | [place] | | | | | | [address] | | | | + + + + + + | % Segmented | 66.66Comment: Testing | % | EXTERNAL | | | | performed at [facility], [address] | | LAB | | | Neutrophils | [address], | | | | | | [place] [address] | | | | + + + + + + | % | 22.99Comment: Testing | % | EXTERNAL | | | Lymphocytes | performed at [facility], [address] | | LAB | | | | [address], | | | | | | [place] [address] | | | | + + + + + + | % Monocytes | 8.58Comment: Testing | % | EXTERNAL | | | | performed at [facility], [address] | | LAB | | | | [address], | | | | | | [place] [address] | | | | + + + + + + | % | 1.28Comment: Testing | % | EXTERNAL | | | Eosinophils | performed at [facility], [address] | | LAB | | | | [address], | | | | | | [place] [address] | | | | + + + + + + | % Basophils | 0.49Comment: Testing | % | EXTERNAL | | | | performed at [facility], [address] | | LAB | | | | [address], | | | | | | [place] [address] | | | | + + + + + + | Absolute | 5.05Comment: Testing | 1.90 - 7.40 | EXTERNAL | | | Segmented | performed at [facility], [address] | K/uL | LAB | | | Neutrophils | [address], | | | | | | [place] [address] | | | | + + + + + + | Absolute | 1.74Comment: Testing | 1.00 - 3.90 | EXTERNAL | | | Lymphocytes | performed at [facility], [address] | K/uL | LAB | | | | [address], | | | | | | [place] [address] | | | | + + + + + + | Absolute | 0.65Comment: Testing | 0.00 - 0.80 | EXTERNAL | | | Monocytes | performed at [facility], [address] | K/uL | LAB | | | | [address], | | | | | | [place] [address] | | | | + + + + + + | Absolute | 0.10Comment: Testing | 0.00 - 0.50 | EXTERNAL | | | Eosinophils | performed at [facility], [address] | K/uL | LAB | | | | [address], | | | | | | [place] [address] | | | | + + + + + + | Absolute | 0.04Comment: Testing | 0.00 - 0.10 | EXTERNAL | | | Basophils | performed at [facility], [address] | K/uL | LAB | | | | [address], | | | | | | [place] [address] | | | | + + + [...] EXTERNAL | | | | performed at [facility], [address] | mmol/L | LAB | | | | [address], | | | | | | [place] [address] | | | | + + + + + + | K | 4.0Comment: Testing | 3.5 - 4.9 | EXTERNAL | | | | performed at [facility], [address] | mmol/L | LAB | | | | [address], | | | | | | [place], [place] [address] | | | | + + + + + + | Cl | 104Comment: Testing | 99 - 109 mmol/L | EXTERNAL | | | | performed at [facility], [address] | | LAB | | | | [address], | | | | | | [place], [place] [address] | | | | + + + + + + | CO2 | 23Comment: Testing | 23 - 32 mmol/L | EXTERNAL | | | | performed at [facility], [address] | | LAB | | | | [address], | | | | | | [place] [address] | | | | + + + + + + | Anion Gap | 10Comment: Testing | 5 - 20 mmol/L | EXTERNAL | | | | performed at [facility], [address] | | LAB | | | | [address], | | | | | | [place] [address] | | | | + + + + + + | Glucose, | 103 (H)Comment: Testing | 65 - 99 mg/dL | EXTERNAL | | | Fasting | performed at [facility], [address] | | LAB | | | | [address], | | | | | | [place] [address] | | | | + + + + + + | BUN | 65 (H)Comment: Testing | 8 - 25 mg/dL | EXTERNAL | | | | performed at [facility], [address] | | LAB | | | | [address], | | | | | | [place] [address] | | | | + + + + + + | Creatinine | 2.76 (H)Comment: Testing | 0.70 - 1.30 | EXTERNAL | | | | performed at [facility], [address] | mg/dL | LAB | | | | [address], | | | | | | [place] [address] | | | | + + + + + + | BUN/Creatin | 24Comment: Testing | | EXTERNAL | | | ine Ratio | performed at [facility], [address] | | LAB | | | | [address], | | | | | | [place] [address] | | | | + + + + + + | Calcium | 9.0Comment: Testing | 8.5 - 10.5 | EXTERNAL | | | | performed at [facility], [address] | mg/dL | LAB | | | | [address], | | | | | | [place] [address] | | | | + + + [...] | | | | | [place] [address] | | | | + + + [...] | | | | | | at [facility];[address] | | | [address];[place] [address] | | | | + + + + + + | Methampheta | NEGATIVEComment: The | | EXTERNAL | | | mine | cutoff for a positive | | LAB | | | Screen, UA, | mAMP is 1000 | | | | | POC | ng/mL.Testing performed | | | | | | at [facility];[address] | | | | | | [address];[place] [address] | | | | + + + [...] | | | Screen, | performed at [facility];[address] | | | | | UA, POC | [address];[place] | | | | | | [address] | | | | + + + + + + | Barbiturate | NEGATIVEComment: | | EXTERNAL | | | s Screen, | Positive cutoff for | | LAB | | | Urine | KOBI = 200 ng/mLTesting | | | | | | performed at [facility];[address] | | | | | | [address];[place] | | | | | | [address] | | | | + + + + + + | Benzodiazep | NEGATIVEComment: | | EXTERNAL | | | vidhya | Positive cutoff for | | LAB | | | Screen, | BENZO = 200 ng/mLTesting | | | | | Urine | performed at [facility];[address] | | | | | | [address];[place] | | | | | | [address] | | | | + + + + + + | Cocaine | NEGATIVEComment: | | EXTERNAL | | | | Positive cutoff for | | LAB | | | | JENIFER = 300 ng/mLTesting | | | | | | performed at [facility];[address] | | | | | | [address];[place] | | | | | | [address] | | | | + + + + + + | Methadone | NEGATIVEComment: | | EXTERNAL | | | | Positive cutoff for | | LAB | | | | MTD = 300 ng/mLTesting | | | | | | performed at [facility];[address] | | | | | | [address];[place] | | | | | | [address] | | | | + + + + + + | Opiates | POSITIVE (A)Comment: | | EXTERNAL | | | | Positive cutoff for | | LAB | | | | OPI = 300 ng/mLTesting | | | | | | performed at [facility];[address] | | | | | | [address];[place] | | | | | | [address] | | | | + + + + + + | PCP | NEGATIVEComment: | | EXTERNAL | | | | Positive cutoff for PCP | | LAB | | | | = 25 ng/mLTesting | | | | | | performed at [facility];[address] | | | | | | [address];[place] | | | | | | [address] | | | | + + + [...] | | | | | performed at [facility] | | | | | | [facility];[place], [place] | | | | | | [address] | | | | + + + [...] EXTERNAL | | | | performed at [facility] | | LAB | | | | [address];[place] | | | | | | [address] | | | | + + + [...] EXTERNAL | | | | performed at [facility];[address] | K/uL | LAB | | | | [address];[place] | | | | | | [address] | | | | + + + + + + | Red Blood | 3.94 (L)Comment: Testing | 4.20 - 5.70 | EXTERNAL | | | Cells | performed at [facility];[address] | M/uL | LAB | | | Counted | [address];[place] | | | | | | [address] | | | | + + + + + + | Hemoglobin | 11.7 (L)Comment: Testing | 13.2 - 17.0 | EXTERNAL | | | | performed at [facility];[address] | g/dL | LAB | | | | [address];[place] | | | | | | [address] | | | | + + + + + + | Hematocrit, | 34.4 (L)Comment: Testing | 39.0 - 50.0 % | EXTERNAL | | | POC | performed at [facility];[address] | | LAB | | | | [address];[place] | | | | | | [address] | | | | + + + + + + | MCV | 87.4Comment: Testing | 80.0 - 100.0 fl | EXTERNAL | | | | performed at [facility];[address] | | LAB | | | | [address];[place] | | | | | | [address] | | | | + + + + + + | MCH | 29.6Comment: Testing | 27.0 - 34.0 pg | EXTERNAL | | | | performed at [facility];[address] | | LAB | | | | [address];[place] | | | | | | [address] | | | | + + + + + + | MCHC | 33.9Comment: Testing | 32.0 - 35.5 | EXTERNAL | | | | performed at [facility];[address] | g/dL | LAB | | | | [address];[place] | | | | | | [address] | | | | + + + + + + | RDW-CV | 38.1Comment: Testing | 37 - 53 fl | EXTERNAL | | | | performed at [facility];[address] | | LAB | | | | [address];[place] | | | | | | [address] | | | | + + + + + + | Platelet | 266Comment: Testing | 150 - 400 K/uL | EXTERNAL | | | Count | performed at [facility];[address] | | LAB | | | Plasma | [address];[place] | | | | | | [address] | | | | + + + + + + | MPV | 10.0Comment: Testing | fl | EXTERNAL | | | | performed at [facility];[address] | | LAB | | | | [address];[place] | | | | | | [address] | | | | + + + + + + | Differentia | AUTOMATEDComment: | | EXTERNAL | | | l Type | Testing performed at | | LAB | | | | [facility];[address];[place] [address] | | | | + + + + + + | % Segmented | 75.90Comment: Testing | % | EXTERNAL | | | | performed at [facility];[address] | | LAB | | | Neutrophils | [address];[place] | | | | | | [address] | | | | + + + + + + | % | 16.41Comment: Testing | % | EXTERNAL | | | Lymphocytes | performed at [facility];[address] | | LAB | | | | [address];[place] | | | | | | [address] | | | | + + + + + + | % Monocytes | 6.38Comment: Testing | % | EXTERNAL | | | | performed at [facility];[address] | | LAB | | | | [address];[place] | | | | | | [address] | | | | + + + + + + | % | 0.79Comment: Testing | % | EXTERNAL | | | Eosinophils | performed at [facility];[address] | | LAB | | | | [address];[place] | | | | | | [address] | | | | + + + + + + | % Basophils | 0.52Comment: Testing | % | EXTERNAL | | | | performed at [facility];[address] | | LAB | | | | [address];[place] | | | | | | [address] | | | | + + + + + + | Absolute | 5.94Comment: Testing | 1.90 - 7.40 | EXTERNAL | | | Segmented | performed at [facility];[address] | K/uL | LAB | | | Neutrophils | [address];[place] | | | | | | [address] | | | | + + + + + + | Absolute | 1.29Comment: Testing | 1.00 - 3.90 | EXTERNAL | | | Lymphocytes | performed at [facility];[address] | K/uL | LAB | | | | [address];[place] | | | | | | [address] | | | | + + + + + + | Absolute | 0.50Comment: Testing | 0.00 - 0.80 | EXTERNAL | | | Monocytes | performed at [facility];[address] | K/uL | LAB | | | | [address];[place] | | | | | | [address] | | | | + + + + + + | Absolute | 0.06Comment: Testing | 0.00 - 0.50 | EXTERNAL | | | Eosinophils | performed at [facility];[address] | K/uL | LAB | | | | [address];[place] | | | | | | [address] | | | | + + + + + + | Absolute | 0.04Comment: Testing | 0.00 - 0.10 | EXTERNAL | | | Basophils | performed at [facility];[address] | K/uL | LAB | | | | [address];[place] | | | | | | [address] | | | | + + + [...] EXTERNAL | | | | performed at [facility];[address] | uIU/mL | LAB | | | | [address];[place], [place] | | | | | | [address] | | | | + + + [...] EXTERNAL | | | | performed at [facility] | | LAB | | | | [address];[place] | | | | | | [address] | | | | + + + [...] EXTERNAL | | | | performed at [facility];[address] | | LAB | | | | [address];[place], [place] | | | | | | [address] | | | | + + + [...] EXTERNAL | | | | performed at [facility];[address] | | LAB | | | | [address];[place] | | | | | | [address] | | | | + + + [...] EXTERNAL | | | | performed at [facility];[address] | mmol/L | LAB | | | | [address];[place] | | | | | | [address] | | | | + + + + + + | K | 3.7Comment: Testing | 3.5 - 4.9 | EXTERNAL | | | | performed at [facility];[address] | mmol/L | LAB | | | | [address];[place] | | | | | | [address] | | | | + + + + + + | Cl | 106Comment: Testing | 99 - 109 mmol/L | EXTERNAL | | | | performed at [facility];[address] | | LAB | | | | [address];[place] | | | | | | [address] | | | | + + + + + + | CO2 | 21 (L)Comment: Testing | 23 - 32 mmol/L | EXTERNAL | | | | performed at [facility];[address] | | LAB | | | | [address];[place] | | | | | | [address] | | | | + + + + + + | Anion Gap | 15Comment: Testing | 5 - 20 mmol/L | EXTERNAL | | | | performed at [facility];[address] | | LAB | | | | [address];[place] | | | | | | [address] | | | | + + + + + + | Glucose, | 96Comment: Testing | 65 - 99 mg/dL | EXTERNAL | | | Fasting | performed at [facility];[address] | | LAB | | | | [address];[place] | | | | | | [address] | | | | + + + + + + | BUN | 72 (H)Comment: Testing | 8 - 25 mg/dL | EXTERNAL | | | | performed at [facility];[address] | | LAB | | | | [address];[place] | | | | | | [address] | | | | + + + + + + | Creatinine | 3.4 (H)Comment: Testing | 0.70 - 1.30 | EXTERNAL | | | | performed at [facility];[address] | mg/dL | LAB | | | | [address];[place] | | | | | | [address] | | | | + + + + + + | BUN/Creatin | 21Comment: Testing | | EXTERNAL | | | ine Ratio | performed at [facility];[address] | | LAB | | | | [address];[place] | | | | | | [address] | | | | + + + + + + | Calcium | 8.1 (L)Comment: Testing | 8.5 - 10.5 | EXTERNAL | | | | performed at [facility];[address] | mg/dL | LAB | | | | [address];[place] | | | | | | [address] | | | | + + + + + + | Protein, | 6.5Comment: Testing | 6.3 - 8.2 g/dL | EXTERNAL | | | Total | performed at [facility];[address] | | LAB | | | | [address];[place] | | | | | | [address] | | | | + + + + + + | Albumin | 3.4 (L)Comment: Testing | 3.6 - 5.0 g/dL | EXTERNAL | | | | performed at [facility];[address] | | LAB | | | | [address];[place] | | | | | | [address] | | | | + + + + + + | Globulin | 3.1Comment: Testing | 1.3 - 4.9 g/dL | EXTERNAL | | | | performed at [facility];[address] | | LAB | | | | [address];[place] | | | | | | [address] | | | | + + + + + + | A/G Ratio | 1.1Comment: Testing | 1.0 - 2.4 | EXTERNAL | | | | performed at [facility];[address] | | LAB | | | | [address];[place] | | | | | | [address] | | | | + + + + + + | Bilirubin | 0.7Comment: Testing | 0.1 - 1.5 mg/dL | EXTERNAL | | | Total | performed at [facility];[address] | | LAB | | | | [address];[place] | | | | | | [address] | | | | + + + + + + | ALP, | 54Comment: Testing | 35 - 115 U/L | EXTERNAL | | | External | performed at [facility];[address] | | LAB | | | | [address];[place] | | | | | | [address] | | | | + + + + + + | AST | 30Comment: Testing | 10 - 45 U/L | EXTERNAL | | | | performed at [facility];[address] | | LAB | | | | [address];[place] | | | | | | [address] | | | | + + + + + + | ALT | 71 (H)Comment: Testing | 10 - 65 U/L | EXTERNAL | | | | performed at [facility];[address] | | LAB | | | | [facility] | | | | | | [address] | | | | + + + [...] | | | | | | at [facility];[address];[place] [address] | | | | + + + [...]
--- OUTSIDE RECORDS SUMMARY | ~2019-09-09 | XMS | Encounter Summary ---
Demographics + + + | Address | [address] | | | [place] [address] | + + + | Home Phone | | + + + | Preferred Language | Unknown | + + + | Marital Status | Single | + + + | Christian Affiliation | Unknown | + + + | Race | Unknown | + + + | Ethnic Group | Unknown | + + + Author + + + | Author | [facility] | | | and [place] | + + + | Organization | [facility] | | | and [place] [...] SKYE OR | | | | | [address] | | + + + + + Care Team Providers + +------+ + | Care Tyre Fitter Name | Role | Phone | + +------+ + | Kip Damon MD | PCP | | + +------+ + Encounter Details +--------+ + + + + | Date | Type | Department | Care Team | Description | +--------+ + + + + | 02/19/ | Orders Only | [facility] | Conversion | | | 2014 | | NEPHROLOGY [facility] | Transaction, | | | | | [address] | Provider Unknown | | | | | [address] [place] | | | | | | [phone] | (Fax) | | | | | [phone] | | | +--------+ + + + [...]
[~2019-09-09 10:06] MED LIST changes: +AMLODIPINE BESY10 MG PO; +GUANFACINE HCL2 MG PO; +LISINOPRIL-HCT1 EACH PO; +METFORMIN HCL1000 MG PO; +PHENERGAN25 MG PR
--- OUTSIDE RECORDS SUMMARY | 2019-09-09 10:10 | XMS ---
PreManage Notification: DARINEL LEACH Security Lead Nurse Events No recent Security Events currently on file CRITERIA MET - Group Notification CARE PROVIDERS MICH VILLANUEVA, Physician Property Adjuster 11/26/2017-Current MODE BENNETT PHONE: Unknown ISH SHEFFIELD Physician Property Adjuster Current PHONE: [phone] Scar has no Care Guidelines for this patient. Care History Medical/Surgical 11/26/2017 [facility] - Patient was referred to [facility] case management due to patient medical history. - Please contact Abbi at [facility] case management when patient is seen in the ED . E.D. VISIT COUNT (12 MO.) 1 JESSICA Talavera TOTAL 1 NOTE: Visits indicate total known visits. ED/UCC VISIT TRACKING (12 MO.) 09/09/2019 10:07 JESSICA [place] TYPE: Emergency COMPLAINT: - LOWER BACK PAIN INPATIENT VISIT TRACKING (12 MO.) No inpatient visits to display in this time frame [id number]
[2019-09-09] MEDS ORDERED: GABAPENTIN100 MG PO (10:30)
[2019-09-09] MEDS ORDERED: ATORVASTATIN CA20 MG PO (10:30)
[2019-09-09] MEDS ORDERED: MIRTAZAPINE15 MG PO (10:30)
== END 2019-09-09 11:12 | disposition home or self-care (01) ==
LOC: ED 10:06
DX: M54.5 Low back pain (principal); G89.29 Other chronic pain; I10 Essential (primary) hypertension; F90.9 Attention-deficit hyperactivity disorder, unspecified type; F17.200 Nicotine dependence, unspecified, uncomplicated; F32.9 Major depressive disorder, single episode, unspecified; Z79.899 Other long term (current) drug therapy
CPT/HCPCS: 96372; 99283; J1885

== ENCOUNTER 2022-11-11 12:18 | Emergency (ER) | payer OTHER ==
[~2022-11-11] VITALS: Ht 185.4 cm; Wt 176.4 kg
--- OUTSIDE RECORDS SUMMARY | ~2022-11-11 | XMS | Continuity of Care Document ---
Demographics + + + | Address | [address] | | | [place] [address] | + + + | Preferred Language | Unknown | + + + | Marital Status | Never | + + + | Pentecostal Affiliation | Unknown | + + + | Race | White | + + + | Ethnic Group | Unknown | + + + Author + + + | Author | [facility] | + + + | Organization | [facility] | + + + | Address | [address] | | | [place] [address] | + + + | Phone | | + + + Care Team Providers + + + + | Care Pulp Mill Supervisor Name | Role | Phone | + + + + Unavailable | Unavailable | + + + + Allergies and Intolerances + + + + + + | date | description | facility | reaction | severity | + + + + + + | (no date) | No Known | [facility] | (no reaction) | (no severity) | | | Allergies | | | | + + + + + + | (no date) | NO KNOWN | [facility] | (no reaction) | (no severity) | | | ALLERGIES | | | | + + + + + + Encounters No information. Functional Status No information. Immunizations No information. Medications No information. Problems + + + + | date | description | facility | + + + + | 2021-10-21 19:34:39 | Morbid (severe) obesity | [facility] | | | due to excess calories | Care | + + + + | 2021-12-31 12:13:14 | Morbid (severe) obesity | [facility] Total | | | due to excess calories | Care | + + + + | 2021-12-31 13:45:06 | Type 2 diabetes mellitus | [facility] | | | without complications | Care | + + + + | 2021-12-31 13:45:06 | Morbid (severe) obesity | [facility] Total | | | due to excess calories | Care | + + + + | 2021-12-31 13:45:06 | Mixed hyperlipidemia | [facility] | | | | Care | + + + + | 2021-12-31 13:45:06 | Obstructive sleep apnea | [facility] | | | (adult) (pediatric) | Care | + + + + | 2021-12-31 13:45:06 | Essential (primary) | [facility] | | | hypertension | Care | + + + + | 2021-12-31 13:45:06 | Gastro-esophageal reflux | [facility] | | | disease without esophagitis | Care | | | | | + + + + | 2021-12-31 13:45:06 | Body mass index (BMI) | [facility] | | | 50.0-59.9, adult | Care | + + + + | 2022-10-19 13:34 | NICOTINE DEPENDENCE, | [facility] | | | UNSPECIFIED, UNCOMPLICATED | | + + + + | 2022-10-19 13:34 | Essential (primary) | [facility] | | | hypertension | | + + + + | 2022-10-19 13:34 | CALCULUS OF GALLBLADDER W | [facility] | | | CHRONIC CHOLECYST W/O OB | | + + + + | 2022-10-19 13:34 | UNSPECIFIED ABDOMINAL PAIN | [facility] | | | | | + + + + | 2022-10-19 13:34 | OTHER DATE PULLER (CURRENT) | [facility] | | | DRUG THERAPY | | + + + + | 2022-10-29 12:20:26 | Sepsis, unspecified | [facility] | | | organism | | + + + + | 2022-10-29 12:20:26 | Acute cholecystitis | [facility] | + + + + | 2022-10-29 12:20:26 | Acquired absence of other | [facility] | | | specified parts of | | | | digestive tract | | + + + + Procedures No information. Results/Labs No information. Social History No information. Vital Signs No information."
--- OUTSIDE RECORDS SUMMARY | ~2022-11-11 | XMS | Continuity of Care Document ---
Demographics + + + | Address | [address] | | | [place] [address] | + + + | Preferred Language | Unknown | + + + | Marital Status | Never | + + + | Zoroastrianism Affiliation | Unknown | + + + | Race | White | + + + | Ethnic Group | Unknown | + + + Author + + + | Author | [facility] | + + + | Organization | [facility] | + + + | Address | [address] | | | [place] [address] | + + + | Phone | | + + + Care Team Providers + + + + | Care Independent Living Instructor Name | Role | Phone | + [...] 2021-10-21 19:34:39 | Morbid (severe) obesity | [facility] | | | due to excess calories | Care | + + + + | 2021-12-31 12:13:14 | Morbid (severe) obesity | [facility] Total | | | due to excess calories | Care | + + + + | 2021-12-31 13:45:06 | Type 2 diabetes mellitus | [facility] Total | | | without complications | Care | + + + + | 2021-12-31 13:45:06 | Morbid (severe) obesity | [facility] Total | | | due to excess calories | Care | + + + + | 2021-12-31 13:45:06 | Mixed hyperlipidemia | [facility] | | | | Care | + + + + | 2021-12-31 13:45:06 | Obstructive sleep apnea | [facility] Total | | | (adult) (pediatric) | Care | + + + + | 2021-12-31 13:45:06 | Essential (primary) | [facility] Total | | | hypertension | Care | + + + + | 2021-12-31 13:45:06 | Gastro-esophageal reflux | [facility] | | | disease without esophagitis | Care | | | | | + + + + | 2021-12-31 13:45:06 | Body mass index (BMI) | [facility] Total | | | 50.0-59.9, adult | [...] + + | 2022-10-19 13:34 | OTHER DRUM FILLER (CURRENT) | [facility] | | | DRUG [...]
[~2022-11-11 12:18] MED LIST changes: +ARIPIPRAZOLE20 MG PO; +ATORVASTATIN CA20 MG PO; +GABAPENTIN100 MG PO; +HYDROXYZINE HCL50 MG PO; +MIRTAZAPINE15 MG PO; +POLYETHYLENE GL17 GM PO; +SILDENAFIL CIT100 MG PO; +TOPIRAMATE200 MG PO; +VARENICLINE TART1 MG PO; +ZIPRASIDONE HCL80 MG PO
--- OUTSIDE RECORDS SUMMARY | 2022-11-11 12:21 | XMS ---
PreManage Notification: DARINEL LEACH Security Transmission Inspector Events No recent Security Events currently on file CRITERIA MET - Group Notification - PDMP - [facility] - 2 Visits in 30 Days CARE PROVIDERS -Tony DMD Dentist: Bilingual Inside Sales Representative Current PHONE: [phone] MICH [place], Physician Primary Special Educator 11/26/2017-Current MODE BENNETT PHONE: Unknown [place] [facility] Current PHONE: [phone] Scar has no Care Guidelines for this patient. E.D. VISIT COUNT (12 MO.) 2 JESSICA Ochao TOTAL 3 NOTE: Visits indicate total known visits. ED/UCC VISIT TRACKING (12 MO.) 11/11/2022 12:19 [facility] [place] TYPE: Emergency COMPLAINT: - POST SURGERY ISSUE 10/20/2022 00:[facility] TYPE: Emergency COMPLAINT: - [facility] DIAGNOSES: - Acute cholecystitis - Abdominal Pain - Acute Cholecystitis 10/19/2022 13:[address] 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 TYPE: Surgery COMPLAINT: - [facility] DIAGNOSES: - Acquired absence of other specified parts of digestive tract - Acute cholecystitis - Sepsis, unspecified organism [email or web address]
[2022-11-11 14:12] VITALS: BP 161/88
== END 2022-11-11 14:14 | disposition home or self-care (01) ==
LOC: ED 12:18
DX: R10.9 Unspecified abdominal pain (principal); I10 Essential (primary) hypertension; F17.200 Nicotine dependence, unspecified, uncomplicated; Z79.899 Other long term (current) drug therapy; Z96.652 Presence of left artificial knee joint; Z98.890 Other specified postprocedural states
CPT/HCPCS: 36415; 74022; 80053; 83690; 85025; 99283 25; 99406

== ENCOUNTER 2023-06-13 11:45 | Emergency (ER) | payer OTHER ==
[~2023-06-13] VITALS: Ht 185.4 cm; Wt 178.8 kg
--- OUTSIDE RECORDS SUMMARY | 2023-06-13 11:46 | XMS ---
PreManage Notification: DARINEL LEACH Security System Administration Manager Events No recent Security Events currently on file CRITERIA MET - Group Notification CARE PROVIDERS MICH VILLANUEVA, Physician Dental Technology Advisor 11/26/2017-Current MODE BENNETT PHONE: Unknown -Tony DMD Dentist: Event Management Consultant Current PHONE: [phone] Scar has no Care Guidelines for this patient. ESeng VISIT COUNT (12 MO.) 3 JESS[facility] Ochoa TOTAL 4 NOTE: Visits indicate total known visits. ED/UCC VISIT TRACKING (12 MO.) 06/13/2023 11:[address] [facility] TYPE: Emergency COMPLAINT: - LOWER BACK PAIN 11/11/2022 12:19 [facility] TYPE: Emergency COMPLAINT: - POST SURGERY ISSUE DIAGNOSES: - Essential (primary) hypertension - Nicotine dependence, unspecified, uncomplicated - Other assisted (current) drug therapy - Other specified postprocedural states - Presence of left artificial knee joint - Unspecified abdominal pain 10/20/2022 00:[facility] TYPE: Emergency COMPLAINT: - Ky MOLINA EJZ DIAGNOSES: - Acute cholecystitis - Abdominal Pain - Acute Cholecystitis 10/19/2022 13:[address] [facility] TYPE: Emergency COMPLAINT: - ABD PAIN, NAUSEA DIAGNOSES: - Calculus of gallbladder with chronic cholecystitis without obstruction - Essential (primary) hypertension - Nicotine dependence, unspecified, uncomplicated - Other watermaster (current) drug therapy - Unspecified abdominal pain INPATIENT VISIT TRACKING (12 MO.) 10/20/2022 00:06 [facility] TYPE: Surgery COMPLAINT: - Ky MOLINA JEZ DIAGNOSES: - Acquired absence of other specified parts of digestive tract - Acute cholecystitis - Sepsis, unspecified organism [email or web address]
[2023-06-13] MEDS ORDERED: KETOROLAC TROMETHAMINE 60 MG/2 ML VIAL IM ONE (13:30)
[2023-06-13] MEDS ORDERED: ACETAMINOPHEN 500 MG TAB PO ONE (13:30)
[2023-06-13] MEDS ORDERED: LIDOCAINE HCL 4% 1 EACH PATCH TD ONE (13:30)
[2023-06-13] MEDS ORDERED: LIDODERM1 EACH TOP (14:14)
[2023-06-13] MEDS ORDERED: IBU800 MG PO (14:14)
[2023-06-13 14:22] VITALS: BP 110/58
[2023-06-13] MEDS ORDERED: LIDOCAINE PATCH REMOVAL 1 EA TD SCH (21:00)
== END 2023-06-13 14:23 | disposition home or self-care (01) ==
LOC: ED 11:45
DX: M54.50 Low back pain, unspecified (principal); I10 Essential (primary) hypertension; F17.200 Nicotine dependence, unspecified, uncomplicated; Z79.899 Other long term (current) drug therapy
CPT/HCPCS: 96372; 99283; A9270; J1885

== ENCOUNTER 2023-10-20 05:19 | Emergency (ER) | payer OTHER ==
[~2023-10-20] VITALS: Ht 185.4 cm; Wt 182.0 kg
[~2023-10-20 05:19] MED LIST changes: +IBU800 MG PO; +LIDODERM1 EACH TOP
--- OUTSIDE RECORDS SUMMARY | 2023-10-20 05:21 | XMS ---
PreManage Notification: DARINEL LEACH Security Development Eng Events No recent Security Events currently on file CRITERIA MET - Group Notification CARE PROVIDERS MICH VILLANUEVA, Physician Wildfire Prevention Specialist 11/26/2017-Current MODE BENNETT PHONE: Unknown -Tony DMD Dentist: Spray Stainer Current PHONE: [phone] Scar has no Care Guidelines for this patient. ESeng VISIT COUNT (12 MO.) 3 JESSICA Ochoa TOTAL 4 NOTE: Visits indicate total known visits. ED/UCC VISIT TRACKING (12 MO.) 10/20/2023 05:19 [facility] TYPE: Emergency COMPLAINT: - LT ANKLE PAIN 06/13/2023 11:45 [facility] TYPE: Emergency COMPLAINT: - LOWER BACK PAIN DIAGNOSES: - Essential (primary) hypertension - Low back pain, unspecified - Nicotine dependence, unspecified, uncomplicated - Other residential (current) drug therapy 11/11/2022 12:19 [facility] TYPE: Emergency COMPLAINT: - POST SURGERY ISSUE DIAGNOSES: - Essential (primary) hypertension - Nicotine dependence, unspecified, uncomplicated - Other residential (current) drug therapy - Other specified postprocedural states - Presence of left artificial knee joint - Unspecified abdominal pain 10/20/2022 00:[facility] TYPE: Emergency COMPLAINT: - JESSE JEZ DIAGNOSES: - Acute cholecystitis - Abdominal Pain - Acute Cholecystitis 10/19/2022 13:34 [facility] TYPE: Emergency COMPLAINT: - ABD PAIN, NAUSEA DIAGNOSES: - Calculus of gallbladder with chronic cholecystitis without obstruction - Essential (primary) hypertension - Nicotine dependence, unspecified, uncomplicated - Other keno terminal operator (current) drug therapy - Unspecified abdominal pain INPATIENT VISIT TRACKING (12 MO.) 10/20/2022 00:[facility] TYPE: Surgery COMPLAINT: - [facility] ST[facility] DIAGNOSES: - Acquired absence of other specified parts of digestive tract - Acute cholecystitis - Sepsis, unspecified organism [email or web address]
[2023-10-20] MEDS ORDERED: CELEBREX200 MG PO (06:22)
[2023-10-20 06:47] VITALS: BP 115/55
== END 2023-10-20 06:48 | disposition home or self-care (01) ==
LOC: ED 05:19
DX: M76.62 Achilles tendinitis, left leg (principal); I10 Essential (primary) hypertension; F17.200 Nicotine dependence, unspecified, uncomplicated; Z79.899 Other long term (current) drug therapy
CPT/HCPCS: 36415; 73610; 85379

== ENCOUNTER 2023-11-18 00:18 | Emergency (ER) | payer OTHER ==
[~2023-11-18] VITALS: Ht 185.4 cm; Wt 175.0 kg
[~2023-11-18 00:18] MED LIST changes: +CELEBREX200 MG PO
--- OUTSIDE RECORDS SUMMARY | 2023-11-18 00:19 | XMS ---
PreManage Notification: DARINEL LEACH Security Sort Operations Supervisor Events No recent Security Events currently on file CRITERIA MET - Group Notification - [facility] - 2 Visits in 30 Days CARE PROVIDERS MICH VILLANUEVA, Physician County Assessor 11/26/2017-Current MODE BENNETT PHONE: Unknown -Tony DMD Dentist: Director Of Clinical Applications Current PHONE: [phone] Scar has no Care Guidelines for this patient. ESeng VISIT COUNT (12 MO.) [address] [place] [address] TOTAL 3 NOTE: Visits indicate total known visits. ED/UCC VISIT TRACKING (12 MO.) 11/18/2023 00:19 [facility] TYPE: Emergency COMPLAINT: - VOMITING 10/20/2023 05:19 [facility] TYPE: Emergency COMPLAINT: - LT ANKLE PAIN DIAGNOSES: - Achilles tendinitis, left leg - Essential (primary) hypertension - Nicotine dependence, unspecified, uncomplicated - Other intermediate (current) drug therapy - Pain in left ankle and joints of left foot 06/13/2023 11:[address] [facility] TYPE: Emergency COMPLAINT: - LOWER BACK PAIN DIAGNOSES: - Essential (primary) hypertension - Low back pain, unspecified - Nicotine dependence, unspecified, uncomplicated - Other intermediate teacher (current) drug therapy INPATIENT VISIT TRACKING (12 MO.) No inpatient visits to display in this time frame [email or web address]
[2023-11-18] MEDS ORDERED: SODIUM CHLORIDE 0.9% 500 ML IV ONE (00:30)
[2023-11-18] MEDS ORDERED: ondansetron HCL 4 MG/2 ML VIAL IV ONE (00:30)
[2023-11-18] MEDS ORDERED: ARIPIPRAZOLE30 MG PO (00:33)
[2023-11-18] MEDS ORDERED: QELBREE200 MG PO (00:33)
[2023-11-18] MEDS ORDERED: VITAMIN D21250 MCG PO (00:34)
[2023-11-18 00:41] LABS: BASOPHILS 0.8 % (0-2); EOSINOPHILS 1.4 % (0-6); HEMATOCRIT 43.4 % (35.0-50.0); HEMOGLOBIN 14.9 g/dL (12.0-18.0); LYMPHOCYTES 19.4 % (24-44); MCH 29.8 (27-36); MCHC 34.3 g/dl (30-36); MCV 86.9 fl (81-99); MONOCYTES 11.3 % (0-12); NEUTROPHILS 67.1 % (39-80); PLATELET COUNT 143 K/uL (140-440); RDW 13.6 (10.5-15.0)
[2023-11-18] MEDS ORDERED: SODIUM CHLORIDE 0.9% 1,000 ML IV PRN (00:45)
[2023-11-18 00:56] LABS: ALBUMIN 3.5 g/dL (3.4-5.0); ALBUMIN/GLOBULIN RATIO 1.09 (1.1-2.4); ANION GAP 12.7 (7-21); BILIRUBIN, TOTAL 0.4 ng/dL (0.2-1.0); BUN/CREATININE RATIO 24.58 (6.0-28.6); CALCIUM 8.3 mg/dL (8.5-10.1); CREATININE, SERUM 1.79 mg/dL (0.70-1.30); MAGNESIUM 2.2 mg/dL (1.8-2.4); POTASSIUM 3.7 mmol/L (3.5-5.1); PROTEIN, TOTAL 6.7 g/dL (6.4-8.2)
[2023-11-18] MEDS ORDERED: ONDANSETRON ODT8 MG PO (01:21)
[2023-11-18] MEDS ORDERED: LOMOTIL TABLET1 EACH PO (01:21)
[2023-11-18] MEDS ORDERED: LACTATED RINGER'S 1,000 ML IV ONE (01:30)
[2023-11-18 02:53] VITALS: BP 110/62
== END 2023-11-18 02:54 | disposition home or self-care (01) ==
LOC: ED 00:18
PROVIDERS: Family Medicine
DX: K52.9 Noninfective gastroenteritis and colitis, unspecified (principal); I10 Essential (primary) hypertension; F17.200 Nicotine dependence, unspecified, uncomplicated; Z79.899 Other long term (current) drug therapy
CPT/HCPCS: 36415; 80053; 83735; 85025; 96361; 96374; 99284-25; J2405; J7030; J7121

== ENCOUNTER 2024-04-12 16:08 | Emergency (ER) | payer OTHER ==
[~2024-04-12] VITALS: Ht 185.4 cm; Wt 181.1 kg
[~2024-04-12 16:08] MED LIST changes: +ARIPIPRAZOLE30 MG PO; +QELBREE200 MG PO; +VITAMIN D21250 MCG PO
--- OUTSIDE RECORDS SUMMARY | 2024-04-12 16:14 | XMS ---
PreManage Notification: DARINEL LEACH Security Dental Technician Apprentice Events No recent Security Events currently on file CRITERIA MET - Group Notification CARE PROVIDERS MICH VILLANUEVA, Physician Emergency Services Professional 11/26/2017-Current MODE BENNETT PHONE: Unknown -Tony DMD Dentist: Tromper Current PHONE: [phone] Scar has no Care Guidelines for this patient. ESeng VISIT COUNT (12 MO.) Sonal Talavera TOTAL 4 NOTE: Visits indicate total known visits. ED/UCC VISIT TRACKING (12 MO.) 04/12/2024 16:08 [facility] TYPE: Emergency COMPLAINT: - RECTAL BLEEDING 11/18/2023 00:19 [facility] TYPE: Emergency COMPLAINT: - VOMITING DIAGNOSES: - Essential (primary) hypertension - Nicotine dependence, unspecified, uncomplicated - Noninfective gastroenteritis and colitis, unspecified - Other senior living (current) drug therapy - Vomiting, unspecified 10/20/2023 05:19 [facility] TYPE: Emergency COMPLAINT: - LT ANKLE PAIN DIAGNOSES: - Achilles tendinitis, left leg - Essential (primary) hypertension - Nicotine dependence, unspecified, uncomplicated - Other senior living (current) drug therapy - Pain in left ankle and joints of left foot 06/13/2023 11:45 [facility] TYPE: Emergency COMPLAINT: - LOWER BACK PAIN DIAGNOSES: - Essential (primary) hypertension - Low back pain, unspecified - Nicotine dependence, unspecified, uncomplicated - Other senior living (current) drug therapy INPATIENT VISIT TRACKING (12 MO.) No inpatient visits to display in this time frame [email or web address]
[2024-04-12] MEDS ORDERED: IBUPROFEN800 MG PO (16:19)
[2024-04-12] MEDS ORDERED: SILDENAFIL CIT100 MG PO (16:20)
[2024-04-12 17:04] LABS: BASOPHILS 0.5 % (0-2); EOSINOPHILS 0.9 % (0-6); HEMATOCRIT 39.5 % (35.0-50.0); HEMOGLOBIN 13.3 g/dL (12.0-18.0); LYMPHOCYTES 14.3 % (24-44); MCH 30.5 (27-36); MCHC 33.5 g/dl (30-36); MONOCYTES 7.3 % (0-12); PLATELET COUNT 89 K/uL (140-440); RBC 4.34 M/ul (4.3-5.7); RDW 13.5 (10.5-15.0)
[2024-04-12 17:21] LABS: ALBUMIN 3.6 g/dL (3.4-5.0); ALBUMIN/GLOBULIN RATIO 1.2 (1.1-2.4); ANION GAP 16.1 (7-21); BILIRUBIN, TOTAL 0.4 ng/dL (0.2-1.0); BUN/CREATININE RATIO 28.68 (6.0-28.6); CALCIUM 8.5 mg/dL (8.5-10.1); CREATININE, SERUM 1.22 mg/dL (0.70-1.30); POTASSIUM 4.1 mmol/L (3.5-5.1); PROTEIN, TOTAL 6.6 g/dL (6.4-8.2)
[2024-04-12 18:06] VITALS: BP 111/55
== END 2024-04-12 18:09 | disposition home or self-care (01) ==
LOC: ED 16:08
PROVIDERS: Emergency Medicine
DX: K92.2 Gastrointestinal hemorrhage, unspecified (principal); I10 Essential (primary) hypertension; R73.03 Prediabetes; F17.200 Nicotine dependence, unspecified, uncomplicated; Z79.899 Other long term (current) drug therapy
CPT/HCPCS: 36415; 80053; 85025; 99283

== ENCOUNTER 2024-05-07 12:20 | Emergency (ER) | payer OTHER ==
[~2024-05-07] VITALS: Ht 185.4 cm; Wt 178.7 kg
[~2024-05-07 12:20] MED LIST changes: +IBUPROFEN800 MG PO
--- OUTSIDE RECORDS SUMMARY | 2024-05-07 12:27 | XMS ---
PreManage Notification: DARINEL LEACH Security It Data Architect Events No recent Security Events currently on file CRITERIA MET - Group Notification - [facility] - 2 Visits in 30 Days CARE PROVIDERS MICH VILLANUEVA, Physician Air Conditioning Engineer 11/26/2017-Current MODE BENNETT PHONE: Unknown -Tony DMD Dentist: Finisher Hot Strip Current PHONE: [phone] Scar has no Care Guidelines for this patient. Celest[place] VISIT COUNT (12 MO.) [address] [place] [address] TOTAL 5 NOTE: Visits indicate total known visits. ED/UCC VISIT TRACKING (12 MO.) 05/07/2024 12:21 [facility] TYPE: Emergency COMPLAINT: - POST OP PROBLEM 04/12/2024 16:08 [facility] TYPE: Emergency COMPLAINT: - RECTAL BLEEDING DIAGNOSES: - Essential (primary) hypertension - Gastrointestinal hemorrhage, unspecified - Hemorrhage of anus and rectum - Nicotine dependence, unspecified, uncomplicated - Other continuous churn buttermaker (current) drug therapy - Prediabetes 11/18/2023 00:19 [facility] TYPE: Emergency COMPLAINT: - VOMITING DIAGNOSES: - Essential (primary) hypertension - Nicotine dependence, unspecified, uncomplicated - Noninfective gastroenteritis and colitis, unspecified - Other fci (current) drug therapy - Vomiting, unspecified 10/20/2023 05:19 [facility] TYPE: Emergency COMPLAINT: - LT ANKLE PAIN DIAGNOSES: - Achilles tendinitis, left leg - Essential (primary) hypertension - Nicotine dependence, unspecified, uncomplicated - Other continuous churn buttermaker (current) drug therapy - Pain in left ankle and joints of left foot 06/13/2023 11:45 [facility] TYPE: Emergency COMPLAINT: - LOWER BACK PAIN DIAGNOSES: - Essential (primary) hypertension - Low back pain, unspecified - Nicotine dependence, unspecified, uncomplicated - Other fci (current) drug therapy INPATIENT VISIT TRACKING (12 MO.) No inpatient visits to display in this time frame [id number]
[2024-05-07] MEDS ORDERED: ATORVASTATIN CA10 MG PO (13:36)
[2024-05-07] MEDS ORDERED: TRULICITY0.75 MG/0. SUB-Q (13:37)
[2024-05-07 14:49] LABS: BASOPHILS 0.6 % (0-2); EOSINOPHILS 4.1 % (0-6); HEMOGLOBIN 13.4 g/dL (12.0-18.0); LYMPHOCYTES 17.2 % (24-44); MCH 30.2 (27-36); MCHC 33.5 g/dl (30-36); MONOCYTES 8.5 % (0-12); NEUTROPHILS 69.6 % (39-80); PLATELET COUNT 102 K/uL (140-440); RBC 4.44 M/ul (4.3-5.7)
[2024-05-07 14:55] LABS: ANION GAP 11.3 (7-21); BUN/CREATININE RATIO 21.05 (6.0-28.6); CALCIUM 9.3 mg/dL (8.5-10.1); CREATININE, SERUM 1.14 mg/dL (0.70-1.30); POTASSIUM 4.3 mmol/L (3.5-5.1)
[2024-05-07 16:39] VITALS: BP 122/69
== END 2024-05-07 16:40 | disposition home or self-care (01) ==
LOC: ED 12:20
PROVIDERS: Emergency Medicine
DX: M54.2 Cervicalgia (principal); I10 Essential (primary) hypertension; R73.03 Prediabetes; F17.200 Nicotine dependence, unspecified, uncomplicated; Z79.899 Other long term (current) drug therapy; Z79.85 Long-term (current) use of injectable non-insulin antidiabetic drugs
CPT/HCPCS: 36415; 70491; 80048; 85025; 99284-25; Q9967

== ENCOUNTER 2024-05-26 01:17 | Emergency (ER) | payer OTHER ==
[~2024-05-26] VITALS: Ht 185.4 cm; Wt 183.3 kg
[~2024-05-26 01:17] MED LIST changes: +ATORVASTATIN CA10 MG PO; +TRULICITY0.75 MG/0. SUB-Q
--- OUTSIDE RECORDS SUMMARY | 2024-05-26 01:24 | XMS ---
PreManage Notification: DARINEL LEACH Security Slurry Tank Operator Events No recent Security Events currently on file CRITERIA MET - Group Notification - [facility] - 2 Visits in 30 Days CARE PROVIDERS MICH VILLANUEVA, Physician Personal Lines Sales Executive 11/26/2017-Current MODE BENNETT PHONE: Unknown -Tony DMD Dentist: Processing Specialist Current PHONE: [phone] Scar has no Care Guidelines for this patient. Celestino VISIT COUNT (12 MO.) [address] [place] [address] TOTAL 6 NOTE: Visits indicate total known visits. ED/UCC VISIT TRACKING (12 MO.) 05/26/2024 01:17 [facility] TYPE: Emergency COMPLAINT: - DIFFICULTY BREATHING 05/07/2024 12:21 [facility] TYPE: Emergency COMPLAINT: - POST OP PROBLEM DIAGNOSES: - Cervicalgia - Essential (primary) hypertension - Long-term (current) use of injectable non-insulin antidiabetic drugs - Nicotine dependence, unspecified, uncomplicated - Other longshore equipment operator (current) drug therapy - Prediabetes 04/12/2024 16:08 [facility] TYPE: Emergency COMPLAINT: - RECTAL BLEEDING DIAGNOSES: - Essential (primary) hypertension - Gastrointestinal hemorrhage, unspecified - Hemorrhage of anus and rectum - Nicotine dependence, unspecified, uncomplicated - Other prison (current) drug therapy - Prediabetes 11/18/2023 00:19 [facility] TYPE: Emergency COMPLAINT: - VOMITING DIAGNOSES: - Essential (primary) hypertension - Nicotine dependence, unspecified, uncomplicated - Noninfective gastroenteritis and colitis, unspecified - Other longshore equipment operator (current) drug therapy - Vomiting, unspecified 10/20/2023 05:19 [facility] TYPE: Emergency COMPLAINT: - LT ANKLE PAIN DIAGNOSES: - Achilles tendinitis, left leg - Essential (primary) hypertension - Nicotine dependence, unspecified, uncomplicated - Other prison (current) drug therapy - Pain in left ankle and joints of left foot 06/13/2023 11:45 [facility] TYPE: Emergency COMPLAINT: - LOWER BACK PAIN DIAGNOSES: - Essential (primary) hypertension - Low back pain, unspecified - Nicotine dependence, unspecified, uncomplicated - Other longshore equipment operator (current) drug therapy INPATIENT VISIT TRACKING (12 MO.) No inpatient visits to display in this time frame [id number]
[2024-05-26] MEDS ORDERED: ACETAMINOPHEN 500 MG TAB PO ONE (02:00)
[2024-05-26] MEDS ORDERED: CYCLOBENZAPRINE10 MG PO (02:07)
[2024-05-26 03:02] VITALS: BP 99/63
== END 2024-05-26 03:02 | disposition home or self-care (01) ==
LOC: ED 01:17
DX: M54.50 Low back pain, unspecified (principal); I10 Essential (primary) hypertension; R73.03 Prediabetes; F17.200 Nicotine dependence, unspecified, uncomplicated; Z79.899 Other long term (current) drug therapy
CPT/HCPCS: 72100; 99283; A9270

== ENCOUNTER 2024-08-23 20:00 | Emergency (ER) | payer OTHER ==
[~2024-08-23] VITALS: Ht 185.4 cm; Wt 173.0 kg
[~2024-08-23 20:00] MED LIST changes: +CYCLOBENZAPRINE10 MG PO
--- OUTSIDE RECORDS SUMMARY | 2024-08-23 20:06 | XMS ---
PreManage Notification: DARINEL LEACH Security Door Person Events No recent Security Events currently on file CRITERIA MET - Group Notification CARE PROVIDERS MICH VILLANUEVA, Physician Traffic And Transport Planner 11/26/2017-Current MODE BENNETT PHONE: Unknown Scar has no Care Guidelines for this patient. ESeng VISIT COUNT (12 MO.) 6 JESSICA Talavera TOTAL 6 NOTE: Visits indicate total known visits. ED/C VISIT TRACKING (12 MO.) 08/23/2024 20:00 [facility] TYPE: Emergency COMPLAINT: - DIZZIENESS/VISION CHANGES 05/26/2024 01:17 [facility] TYPE: Emergency COMPLAINT: - DIFFICULTY BREATHING DIAGNOSES: - Essential (primary) hypertension - Low back pain, unspecified - Nicotine dependence, unspecified, uncomplicated - Other long-term (current) drug therapy - Prediabetes 05/07/2024 12:21 [facility] TYPE: Emergency COMPLAINT: - POST OP PROBLEM DIAGNOSES: - Cervicalgia - Essential (primary) hypertension - Long-term (current) use of injectable non-insulin antidiabetic drugs - Nicotine dependence, unspecified, uncomplicated - Other long-term (current) drug therapy - Prediabetes 04/12/2024 16:08 [facility] TYPE: Emergency COMPLAINT: - RECTAL BLEEDING DIAGNOSES: - Essential (primary) hypertension - Gastrointestinal hemorrhage, unspecified - Hemorrhage of anus and rectum - Nicotine dependence, unspecified, uncomplicated - Other terminal superintendent (current) drug therapy - Prediabetes 11/18/2023 00:19 [facility] TYPE: Emergency COMPLAINT: - VOMITING DIAGNOSES: - Essential (primary) hypertension - Nicotine dependence, unspecified, uncomplicated - Noninfective gastroenteritis and colitis, unspecified - Other terminal superintendent (current) drug therapy - Vomiting, unspecified 10/20/2023 05:19 [facility] TYPE: Emergency COMPLAINT: - LT ANKLE PAIN DIAGNOSES: - Achilles tendinitis, left leg - Essential (primary) hypertension - Nicotine dependence, unspecified, uncomplicated - Other long-term (current) drug therapy - Pain in left ankle and joints of left foot INPATIENT VISIT TRACKING (12 MO.) No inpatient visits to display in this time frame [email or web address]
[2024-08-23] MEDS ORDERED: SODIUM CHLORIDE 0.9% 1,000 ML IV ONE (20:15)
[2024-08-23 20:25] LABS: BASOPHILS 0.3 % (0-2); EOSINOPHILS 2.7 % (0-6); HEMATOCRIT 40.3 % (35.0-50.0); HEMOGLOBIN 13.7 g/dL (12.0-18.0); LYMPHOCYTES 15.7 % (24-44); MCH 29.4 (27-36); MCHC 33.9 g/dl (30-36); MCV 86.7 fl (81-99); MONOCYTES 5.8 % (0-12); NEUTROPHILS 75.5 % (39-80); PLATELET COUNT 97 K/uL (140-440); RBC 4.65 M/ul (4.3-5.7); RDW 13.4 (10.5-15.0)
[2024-08-23 20:35] LABS: INR 1.17 (0.80-1.30); PROTIME 14.4 Sec (11.2-14.2)
[2024-08-23 20:40] LABS: ALBUMIN 3.7 g/dL (3.4-5.0); ALBUMIN/GLOBULIN RATIO 1.12 (1.1-2.4); ANION GAP 13.1 (7-21); BILIRUBIN, TOTAL 0.5 mg/dL (0.2-1.0); BUN/CREATININE RATIO 29.1 (6.0-28.6); CALCIUM 8.8 mg/dL (8.5-10.1); CREATININE, SERUM 2.68 mg/dL (0.70-1.30); POTASSIUM 4.1 mmol/L (3.5-5.1)
[2024-08-23 20:44] LABS: LACTIC ACID, BLOOD 0.9 mmol/L (0.4-2.0)
[2024-08-23] MEDS ORDERED: LACTATED RINGER'S 1,000 ML IV ONE (21:15)
[2024-08-23] MEDS ORDERED: SODIUM CHLORIDE 0.9% 1,000 ML IV PRN (21:15)
[2024-08-23 21:17] LABS: BILIRUBIN, URINE NEGATIVE (negative); BLOOD/HGB, URINE NEGATIVE (Negative); KETONE, URINE NEGATIVE (Negative); LEUK ESTERASE, URINE NEGATIVE (negative); NITRITE, URINE NEGATIVE (negative)
[2024-08-23 23:08] LABS: ANION GAP 12.1 (7-21); BUN/CREATININE RATIO 31.46 (6.0-28.6); CALCIUM 8.1 mg/dL (8.5-10.1); CREATININE, SERUM 2.32 mg/dL (0.70-1.30); POTASSIUM 4.1 mmol/L (3.5-5.1)
[2024-08-23 23:47] VITALS: BP 101/48
--- NOTE | 2024-08-24 08:16 | EKG ---
[facility] [address] [facility] [place] [address] Signed Normal sinus rhythm Low voltage QRS Cannot rule out Anterior infarct , age undetermined Abnormal ECG When compared with ECG of 30-MAR-2017 08:48, No significant change was found Confirmed by Stalin Blas DO ([id number]) on 08/24/2024 8:16:00 AM Electronically Signed By: STALIN BLAS DO 08/24/2416 PATIENT NAME: HANYDARINEL III Electrocardiogram DATE OF : 79 PHYSICIAN: STALIN BLAS DO REPORT #: [id number] REPORT IS CONFIDENTIAL AND NOT TO BE RELEASED WITHOUT AUTHORIZATION
== END 2024-08-23 23:50 | disposition home or self-care (01) ==
LOC: ED 20:00
PROVIDERS: Family Medicine
DX: E86.0 Dehydration (principal); N28.9 Disorder of kidney and ureter, unspecified; I10 Essential (primary) hypertension; F17.200 Nicotine dependence, unspecified, uncomplicated; Z79.899 Other long term (current) drug therapy
CPT/HCPCS: 36415; 74176; 80048; 80053; 81003; 83605; 85025; 85610; 87040; 93005; 93010; 96360; 96361; 99285-25; J7030; J7121

== ENCOUNTER 2024-11-26 08:13 | Emergency (ER) | payer OTHER ==
[~2024-11-26] VITALS: Ht 185.4 cm; Wt 175.0 kg
--- OUTSIDE RECORDS SUMMARY | 2024-11-26 08:20 | XMS ---
PreManage Notification: DARINEL LEACH Security Oil Heater Installer Events No recent Security Events currently on file CRITERIA MET - Group Notification CARE PROVIDERS MICH VILLANUEVA, Physician Society Reporter 11/26/2017-Current MODE BENNETT PHONE: Unknown -Tony DMD Dentist: Behavior Specialist Current PHONE: [phone] Scar has no Care Guidelines for this patient. ESeng VISIT COUNT (12 MO.) Lay Talavera TOTAL 5 NOTE: Visits indicate total known visits. ED/UCC VISIT TRACKING (12 MO.) 11/26/2024 08:13 [facility] TYPE: Emergency COMPLAINT: - BACK PAIN 08/23/2024 20:00 [facility] TYPE: Emergency COMPLAINT: - DIZZIENESS/VISION CHANGES DIAGNOSES: - Dehydration - Disorder of kidney and ureter, unspecified - Dizziness and giddiness - Essential (primary) hypertension - Nicotine dependence, unspecified, uncomplicated - Other [facility] (current) drug therapy 05/26/2024 01:17 [facility] TYPE: Emergency COMPLAINT: - DIFFICULTY BREATHING DIAGNOSES: - Essential (primary) hypertension - Low back pain, unspecified - Nicotine dependence, unspecified, uncomplicated - Other chcf (current) drug therapy - Prediabetes 05/07/2024 12:21 [facility] TYPE: Emergency COMPLAINT: - POST OP PROBLEM DIAGNOSES: - Cervicalgia - Essential (primary) hypertension - Long-term (current) use of injectable non-insulin antidiabetic drugs - Nicotine dependence, unspecified, uncomplicated - Other [facility] (current) drug therapy - Prediabetes 04/12/2024 16:08 [facility] TYPE: Emergency COMPLAINT: - RECTAL BLEEDING DIAGNOSES: - Essential (primary) hypertension - Gastrointestinal hemorrhage, unspecified - Hemorrhage of anus and rectum - Nicotine dependence, unspecified, uncomplicated - Other chcf (current) drug therapy - Prediabetes INPATIENT VISIT TRACKING (12 MO.) No inpatient visits to display in this time frame [id number]
[2024-11-26] MEDS ORDERED: ACETAMINOPHEN 500 MG TAB PO ONE (08:45)
[2024-11-26] MEDS ORDERED: IBUPROFEN 600 MG TAB PO ONE (08:45)
[2024-11-26 08:51] LABS: BLOOD/HGB, URINE NEGATIVE (Negative); KETONE, URINE NEGATIVE (Negative); LEUK ESTERASE, URINE NEGATIVE (negative); NITRITE, URINE NEGATIVE (negative)
[2024-11-26 09:02] VITALS: BP 137/72
== END 2024-11-26 09:02 | disposition home or self-care (01) ==
LOC: ED 08:13
PROVIDERS: Emergency Medicine
DX: M54.6 Pain in thoracic spine (principal); I10 Essential (primary) hypertension; F17.200 Nicotine dependence, unspecified, uncomplicated; Z79.899 Other long term (current) drug therapy
CPT/HCPCS: 81003; 99284; A9270